=== PATIENT | female | born 1945 | race Caucasian/White ===

== ENCOUNTER → 2017-01-11 | Outpatient (CLI) | payer MEDICARE ==
[~2017-01-11] MED LIST: ACET325T9 PO; BUDE10.22 IH; CETRIZINE; CRESTOR5 MG PO; HYDR25TA9 PO; METF500T4 PO; TIOT18CA IH
--- NOTE | 2017-01-12 15:04 | RAD ---
APPROVED REPORT Patient Location: OUT-PATIENT Indications Claudication: Tan scale images of the right common femoral artery demonstrate mild to moderate catheters chronic p laque with biphasic spectral velocities and elevated velocities at 196.8 cm/s. There is moderate cath eters cardiac plaque in the mid to distal superficial femoral artery with elevated velocities suggest yanci of greater than 75% stenosis. The spectral waveforms are monophasic at this level suggestive of h igh-grade disease. The below-knee vessels demonstrate monophasic waveforms suggestive of likely small vessel distal disease but are patent. The left common femoral artery demonstrates mild plaque. Elevated velocities in a monophasic pattern are noted in the common femoral artery at 245 cm/s. The spectral waveforms are monophasic in the sup erficial femoral artery extending to the below-knee vessels. There is patent 3 vessel runoff in the l eft lower extremity. Critical Notification Critical Value: No <Conclusion> 1. 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 2. Likely moderate occlusive disease in the inflow vessels given elevated velocities in the common fe moral artery system. 3. Likely diffuse small vessel disease given monophasic waveforms throughout most of the system.
== END | disposition home or self-care (01) ==
LOC: US 10:33
PROVIDERS: ATTEND Internal Medicine Cardiovascular Disease
DX: I73.9 Peripheral vascular disease, unspecified (principal)
CPT/HCPCS: 93925

== ENCOUNTER → 2017-01-24 | Outpatient (CLI) | payer MEDICARE ==
[2017-01-24 11:16] LABS: BASO % 0 % (0-3); EOS # 0.1 x10^3/uL (0.0-0.7); EOS % 2 % (0-3); HEMATOCRIT 38.1 % (36.0-47.0); HEMOGLOBIN 12.9 g/dL (12.0-15.5); LYMPH # 1.6 x10^3/uL (1.0-4.8); LYMPH % 21 % (24-48); MEAN CORPUSCULAR HEMOGLOBIN 32 pg (25-35); MEAN CORPUSCULAR HGB CONC 34 g/dL (31-37); MEAN CORPUSCULAR VOLUME 95 fL (79-100); MONO # 0.5 x10^3/uL (0.0-1.1); MONO % 7 % (0-9); NEUT # 5.4 x10^3uL (1.8-7.7); NEUT % 70 % (31-73); PLATELET COUNT 329 x10^3/uL (140-400); WHITE BLOOD COUNT 7.7 x10^3/uL (4.0-11.0)
[2017-01-24 11:22] LABS: CALCIUM 8.8 mg/dL (8.5-10.1); GFR 54.5; POTASSIUM 3.9 mmol/L (3.5-5.1)
== END | disposition home or self-care (01) ==
LOC: LAB 10:16
PROVIDERS: ATTEND Specialist
DX: R50.82 Postprocedural fever (principal)
CPT/HCPCS: 36415; 80048; 85027; 87040

== ENCOUNTER → 2017-03-06 | Outpatient (CLI) | payer MEDICARE ==
--- NOTE | 2017-03-06 10:47 | RAD ---
DATE: 03/06/2017 EXAM: DIGITAL SCREEN BILAT W/CAD HISTORY: Screening study. COMPARISON: 02/01/2016 This study was interpreted with the benefit of Computerized Aided Detection (CAD). FINDINGS: Digital MLO and CC mammograms of both breasts were obtained. Comparison study is dated 02/01/2016. The breast parenchyma is composed of scattered fibroglandular densities which can obscure a lesion on mammography (breast density code B). Benign-appearing calcifications are seen within both breasts. No spiculated mass is seen. No malignant appearing calcification or area of architectural distortion is noted. Since the previous examination is no significant interval change. IMPRESSION: BI-RADS Category 1, negative. There is no mammographic evidence of malignancy. Routine yearly screening mammography is recommended for follow-up. BI-RADS CATEGORY: 1 NEGATIVE RECOMMENDED FOLLOW-UP: ADD ADDITIONAL IMAGING PQRS compliance statement: Patient information was entered into a reminder system with a target due date 03/06/2018 for the next mammogram. Mammography is a sensitive method for finding small breast cancers, but it does not detect them all and is not a substitute for careful clinical examination. A negative mammogram does not negate a clinically suspicious finding and should not result in delay in biopsying a clinically suspicious abnormality. "Our facility is accredited by the [employer] Mammography Program."
== END | disposition home or self-care (01) ==
LOC: MAMMO 09:16
PROVIDERS: ATTEND Specialist
DX: Z12.31 Encounter for screening mammogram for malignant neoplasm of breast (principal)
CPT/HCPCS: G0202; 77067

== ENCOUNTER → 2017-04-27 | Outpatient (CLI) | payer MEDICARE ==
--- NOTE | 2017-04-27 09:55 | RAD ---
Examination: CT chest without contrast History: History of follow-up lung nodules. Comparison: 05/15/2016 Technique: Axial CT images of the chest were performed with contrast. Coronal and sagittal reformats were performed PQRS Compliance Statement: One or more of the following individualized dose reduction techniques were utilized for this examination: 1. Automated exposure control 2. Adjustment of the mA and/or kV according to patient size 3. Use of iterative reconstruction technique. Findings: The visualized thyroid and grossly appears unremarkable. The central airways are patent. Few prominent mediastinal lymph nodes are identified with the largest measuring 1.5 cm in the pretracheal region. Multiple small subcentimeter bilateral pulmonary nodules are identified measuring 3 mm, 4 mm in the right upper lobe, 3 mm in the right middle lobe, 5 mm in the lateral aspect of the right middle lobe and 6 mm the right lower lobe of the lung. Small nodules identified in the left lower lobe of the lung measuring up to 5 mm Linear bibasal lung airspace opacities likely atelectasis or infiltrate. There is a linear focus of atelectasis or infiltrate identified in the anterior aspect of the right middle lobe of the lung. Diffuse bilateral emphysematous changes identified in the lungs Aortic atherosclerosis. Moderate degenerative changes thoracic spine The visualized liver, spleen, adrenals grossly appears unremarkable Impression: 1. Multiple scattered bilateral subcentimeter noncalcified pulmonary nodules are identified with the largest measuring 5 mm in the right lower lobe of the lung. There are mild prominent mediastinal lymph nodes with the largest measuring 1.5 cm in the pretracheal region. 2. Patchy bibasal lung airspace opacities in right middle lobe airspace opacity likely atelectasis or infiltrate. The left lung base infiltrate appears new.
== END | disposition home or self-care (01) ==
LOC: CT 09:24
PROVIDERS: ATTEND Internal Medicine Pulmonary Disease
DX: R91.8 Other nonspecific abnormal finding of lung field (principal); I70.0 Atherosclerosis of aorta; M47.894 Other spondylosis, thoracic region
CPT/HCPCS: 71250

== ENCOUNTER → 2017-08-31 | Outpatient (CLI) | payer MEDICARE ==
[~2017-08-31] MED LIST changes: +IOHEXOL 300 MG/ML 75 ML VIAL. IV ONE
--- NOTE | 2017-08-31 13:15 | RAD ---
CT of the chest without contrast, 08/31/2017: History: Follow-up lung nodules Noncontrast scans were obtained and compared to a study from 04/27/2017. There are moderate emphysematous changes in the lungs with scattered linear parenchymal scars. There are thicker streaky opacities in both lower lobes and medially in the right middle lobe and lingula, also probably representing areas of scarring. There are multiple small noncalcified pulmonary nodules in both lungs which appear to be unchanged. These include a 4 mm nodule seen posteriorly in the left lung base on image 226 of series #5. There is a 5 mm subpleural nodule located more laterally in the left base on image 225 of series #5 which is also unchanged. There is a 3.5 mm nodule in the left upper lobe as seen on image 111 of series #5 which appears unchanged. A 5 mm subpleural nodule along the dome of the right hemidiaphragm is unchanged. Several additional tiny stable subpleural nodules are seen. No new pulmonary nodules or pulmonary consolidation is seen. There is no evidence of pleural fluid. There is moderate calcific plaquing of the thoracic aorta without evidence of any present. No mediastinal adenopathy is seen. There are moderate scattered degenerative changes in the spine. IMPRESSION: 1. Emphysema with parenchymal scarring. 2. Unchanged tiny bilateral noncalcified pulmonary nodules. 3. No new chest abnormality is detected. PQRS Compliance Statement: One or more of the following individualized dose reduction techniques were utilized for this examination: 1. Automated exposure control 2. Adjustment of the mA and/or kV according to patient size 3. Use of iterative reconstruction technique
== END | disposition home or self-care (01) ==
LOC: CT 08:29
PROVIDERS: ATTEND Internal Medicine Pulmonary Disease
DX: R91.1 Solitary pulmonary nodule (principal); J43.8 Other emphysema; J98.4 Other disorders of lung
CPT/HCPCS: 71250

== ENCOUNTER → 2017-10-11 | Outpatient (CLI) | payer MEDICARE ==
[~2017-10-11] MED LIST changes: -IOHEXOL 300 MG/ML 75 ML VIAL. IV ONE
[2017-10-11 08:57] LABS: CALCIUM 9.5 mg/dL (8.5-10.1); CREATININE 0.8 mg/dL (0.6-1.0); GFR 70.5; POTASSIUM 3.5 mmol/L (3.5-5.1)
[2017-10-12 03:18] LABS: HEMOGLOBIN A1C 6.7 % (4.8-5.6)
== END | disposition home or self-care (01) ==
LOC: LAB 07:32
PROVIDERS: ATTEND Specialist
DX: E11.9 Type 2 diabetes mellitus without complications (principal); I10 Essential (primary) hypertension; E78.5 Hyperlipidemia, unspecified
CPT/HCPCS: 36415; 80048; 83036

== ENCOUNTER → 2017-10-11 | Outpatient (CLI) | payer MEDICARE ==
[2017-10-11 09:02] LABS: ALBUMIN 3.9 g/dL (3.4-5.0); DIRECT BILIRUBIN 0.1 mg/dL (0.0-0.2); TOTAL BILIRUBIN 0.4 mg/dL (0.2-1.0); TOTAL PROTEIN 7.6 g/dL (6.4-8.2)
== END | disposition home or self-care (01) ==
LOC: LAB 07:33
PROVIDERS: ATTEND Internal Medicine Cardiovascular Disease
DX: Z51.81 Encounter for therapeutic drug level monitoring (principal); E78.5 Hyperlipidemia, unspecified; I10 Essential (primary) hypertension; E11.9 Type 2 diabetes mellitus without complications
CPT/HCPCS: 36415; 80061; 80076

== ENCOUNTER → 2017-12-18 | Outpatient (CLI) | payer MEDICARE ==
[~2017-12-18] MED LIST changes: -METF500T4 PO; +METF500T5 PO
--- NOTE | 2017-12-19 07:57 | RAD ---
PA and lateral chest radiograph. History: COPD, shortness of air. Comparison: CT chest August 31, 2017. Findings: There is suboptimal inspiration. Cardiac silhouette is borderline in size. No pneumothorax or pleural effusion is appreciated. Density at the left lung base is favored to be atelectasis. Curvilinear density involving the right lower lobe is compatible with parenchymal scarring. Impression: 1. Left basilar atelectasis. Electronically signed by: Wilmer Fernando MD (12/19/2017 7:54 AM) [facility]
== END | disposition home or self-care (01) ==
LOC: RAD 16:46
PROVIDERS: ATTEND Specialist
DX: J44.1 Chronic obstructive pulmonary disease with (acute) exacerbation (principal); J98.11 Atelectasis; I10 Essential (primary) hypertension; E11.9 Type 2 diabetes mellitus without complications
CPT/HCPCS: 71046

== ENCOUNTER → 2018-04-12 | Outpatient (CLI) | payer MEDICARE ==
[~2018-04-12] MED LIST changes: +METF500T16 PO; -METF500T5 PO
--- NOTE | 2018-04-12 17:06 | RAD ---
Bilateral lower extremity venous doppler ultrasound Indication: Bilateral knee pain. . Technique: Color Doppler, grayscale, and spectral waveform analysis is used to evaluate the right and left lower extremity deep venous system, including the common femoral vein, superficial femoral vein, popliteal vein, and visualized calf veins. Right leg: No evidence of deep venous thrombosis. Normal response to augmentation, normal compressibility and normal phasicity is demonstrated. Visualized calf veins are patent. The visualized greater saphenous vein is patent. Left leg: No evidence of deep venous thrombosis. Normal response to augmentation, normal compressibility and normal phasicity is demonstrated. Visualized calf veins are patent. Visualized greater saphenous vein is patent. Impression: Negative for deep venous thrombosis Electronically signed by: Wilmer Arita MD (04/12/2018 5:02 PM) [email or web address]
== END | disposition home or self-care (01) ==
LOC: US 15:30
PROVIDERS: ATTEND Specialist
DX: M17.0 Bilateral primary osteoarthritis of knee (principal); M79.604 Pain in right leg; I10 Essential (primary) hypertension; E11.9 Type 2 diabetes mellitus without complications; J43.9 Emphysema, unspecified; M19.041 Primary osteoarthritis, right hand; M19.042 Primary osteoarthritis, left hand; E78.5 Hyperlipidemia, unspecified; M16.0 Bilateral primary osteoarthritis of hip
CPT/HCPCS: 93970

== ENCOUNTER → 2018-05-15 | Outpatient (CLI) | payer MEDICARE ==
--- NOTE | 2018-05-15 09:30 | RAD ---
Chest, PA and Lateral: Technique: PA and lateral views of the chest were obtained. History: Shortness of breath. Comparison: 12/18/2017. Findings: The heart and pulmonary vasculature appear within normal limits. Minimal bibasilar lung atelectasis.. The pleural margins are clear. Right-sided Port-A-Cath is identified. Moderate degenerative changes of thoracic spine. Impression: Minimal bibasilar atelectasis.. Electronically signed by: Darell Marie MD (05/15/2018 9:27 AM) [id number]
[2018-05-15 09:43] LABS: BASO # 0.1 x10^3/uL (0.0-0.2); BASO % 2 % (0-3); EOS # 0.1 x10^3/uL (0.0-0.7); EOS % 2 % (0-3); HEMATOCRIT 39.2 % (36.0-47.0); HEMOGLOBIN 13.2 g/dL (12.0-15.5); LYMPH # 1.8 x10^3/uL (1.0-4.8); LYMPH % 20 % (24-48); MEAN CORPUSCULAR HEMOGLOBIN 32 pg (25-35); MEAN CORPUSCULAR HGB CONC 34 g/dL (31-37); MEAN CORPUSCULAR VOLUME 95 fL (79-100); MONO # 0.4 x10^3/uL (0.0-1.1); MONO % 5 % (0-9); NEUT # 6.3 x10^3uL (1.8-7.7); NEUT % 72 % (31-73); PLATELET COUNT 360 x10^3/uL (140-400); RED BLOOD COUNT 4.12 x10^6/uL (3.50-5.40); RED CELL DISTRIBUTION WIDTH 13.4 % (11.5-14.5); WHITE BLOOD COUNT 8.8 x10^3/uL (4.0-11.0)
== END | disposition home or self-care (01) ==
LOC: RAD 09:01
PROVIDERS: ATTEND Specialist
DX: J44.1 Chronic obstructive pulmonary disease with (acute) exacerbation (principal); J98.11 Atelectasis
CPT/HCPCS: 36415; 71046; 85025

== ENCOUNTER → 2018-06-26 | Outpatient (CLI) | payer MEDICARE ==
[~2018-06-26] MED LIST changes: +HYDR-2145 PO; -HYDR25TA9 PO
--- NOTE | 2018-06-26 11:52 | RAD ---
DATE: 06/26/2018 EXAM: DIGITAL SCREEN BILAT W/CAD HISTORY: Routine screening COMPARISON: 2016 This study was interpreted with the benefit of Computerized Aided Detection (CAD). Breast Density: SCATTERED The breast parenchyma shows scattered fibroglandular densities. Breast parenchyma level B. FINDINGS: No new or enlarging breast densities are seen. Benign type calcifications are present. No suspicious microcalcifications have developed. IMPRESSION: Stable mammograms without evidence of malignancy. BI-RADS CATEGORY: 2 BENIGN FINDING(S) RECOMMENDED FOLLOW-UP: 12M 12 MONTH FOLLOW-UP PQRS compliance statement: Patient information was entered into a reminder system with a target due date for the next mammogram. Mammography is a sensitive method for finding small breast cancers, but it does not detect them all and is not a substitute for careful clinical examination. A negative mammogram does not negate a clinically suspicious finding and should not result in delay in biopsying a clinically suspicious abnormality. "Our facility is accredited by the [employer] Mammography [employer]."
--- NOTE | 2018-06-26 12:27 | RAD ---
EXAM: Dual energy x-ray absorptiometry (DEXA). HISTORY: Postmenopausal female presents for osteoporosis screening. COMPARISON: 02/01/2016. TECHNIQUE: Dual energy x-ray absorptiometry of the lumbar spine and right hip was performed. Calculation of bone mineral density based on standard deviations above or below the expected young adult normal value (T-score) was completed. FINDINGS: The average bone mineral density in the 1st through 4th lumbar vertebrae is 1.3-3 g/cmxcm, corresponding with a T-score of 1.2. There has been no change in bone mineral density of the lumbar spine compared to the prior study. The average total bone mineral density in the right hip is 1.103 g/cmxcm, corresponding with a T-score of 1.2. There has been a 0.4 percent decrease in density of the right hip compared to the prior study. IMPRESSION: Normal bone mineral density. Note: Definitions established by the World Health Organization: 1. Normal: T-score is -1.0 or above. 2. Osteopenia: T-score is between -1.0 and -2.5 . 3. Osteoporosis: T-score is -2.5 or below. Electronically signed by: Enedina Nash MD (06/26/2018 12:23 PM) [email or web address]
== END | disposition home or self-care (01) ==
LOC: DXRAD 09:29
PROVIDERS: ATTEND Specialist
DX: Z12.31 Encounter for screening mammogram for malignant neoplasm of breast (principal); Z13.820 Encounter for screening for osteoporosis; Z78.0 Asymptomatic menopausal state
CPT/HCPCS: 77067; 77080

== ENCOUNTER → 2018-10-22 | Outpatient (CLI) | payer MEDICARE ==
[2018-10-22 16:33] LABS: INFLUENZA A PATIENT NEGATIVE (NEGATIVE); INFLUENZA B PATIENT NEGATIVE (NEGATIVE)
== END | disposition home or self-care (01) ==
LOC: LAB 15:20
PROVIDERS: ATTEND Internal Medicine Hematology & Oncology
DX: J02.9 Acute pharyngitis, unspecified (principal)
CPT/HCPCS: 87070; 87804; 87880

== ENCOUNTER → 2018-11-08 | Outpatient (CLI) | payer MEDICARE ==
--- NOTE | 2018-11-09 09:09 | RAD ---
PA and lateral chest. HISTORY: Short of air, COPD PA and lateral views were taken of the chest. There is a Port-A-Cath on the left without change. There is linear scarring in the left lung base without change compared to a study from April 2018. There are no new infiltrates. The aorta is mildly tortuous. Heart is normal in size. There is no effusion. IMPRESSION: 1. Basilar scarring or atelectasis without change from an old study. 2. No acute infiltrates. Electronically signed by: Fer Peck MD (11/09/2018 9:07 AM) [facility]
== END | disposition home or self-care (01) ==
LOC: DXRAD 16:37
PROVIDERS: ATTEND Physician Assistant
DX: J44.1 Chronic obstructive pulmonary disease with (acute) exacerbation (principal)
CPT/HCPCS: 71046

== ENCOUNTER → 2019-07-15 | Outpatient (CLI) | payer MEDICARE ==
--- NOTE | 2019-07-15 11:26 | RAD ---
EXAM: Dual energy x-ray absorptiometry (DEXA). HISTORY: Post menopausal screening. TECHNIQUE: Dual energy x-ray absorptiometry of the lumbar spine and the right hip was performed. T-score of average bone mineral density based was calculated based on standard deviations above or below the expected young adult normal value. Diagnostic definitions were established by the World Health Organization. FINDINGS: The average bone mineral density associated with L1-L4 is 1.295 g/cm^2, corresponding with a T-score of 1.0. The average total bone mineral density associated with the right hip is 1.025 g/cm^2, corresponding with a T-score of 0.6. In comparison with the baseline study of 02/01/2016, average bone mineral density at the lumbar spine has changed -2.0%, while the average density at the hips has changed -7.2%. Refer to the worksheets for full detail. IMPRESSION: 1. Normal. Average bone mineral density yields a T-score of -1.0 or greater. Fracture risk is low. Electronically signed by: West Mcclendon MD (07/15/2019 11:24 AM) [facility]
--- NOTE | 2019-07-16 12:18 | RAD ---
DATE: July 15, 2019 EXAM: DIGITAL SCREEN BILAT W/CAD HISTORY: Screening study. COMPARISON: 2016 and 2018 This study was interpreted with the benefit of Computerized Aided Detection (CAD). FINDINGS: Breast Density: SCATTERED The breast parenchyma shows scattered fibroglandular densities. Breast parenchyma level B.. There are no dominant suspicious masses, suspicious microcalcifications or evidence of architectural distortion. IMPRESSION: No mammographic indicators for malignancy. BI-RADS CATEGORY: 1 NEGATIVE RECOMMENDED FOLLOW-UP: 12M 12 MONTH FOLLOW-UP PQRS compliance statement: Patient information was entered into a reminder system with a target due date July 16, 2020 for the next mammogram. Mammography is a sensitive method for finding small breast cancers, but it does not detect them all and is not a substitute for careful clinical examination. A negative mammogram does not negate a clinically suspicious finding and should not result in delay in biopsying a clinically suspicious abnormality. "Our facility is accredited by the [employer] Mammography Program." The patient's breast density may affect the ability of mammography to detect breast cancer. There are 4 categories of breast density, A, B, C and D. Breast density A means that most of the breast tissue is replaced with adipose tissue and therefore is not dense. Breast density B means that the breast tissue is mildly dense and scattered. Breast density C means that the breast tissue is heterogeneously dense. Breast density D means that the breast tissue is very dense. Breast densities especially C and D may decrease the sensitivity of mammography to detect breast cancer. Therefore, the patient may benefit from 3-D breast mammography (3D breast tomography) as a part of their screening mammogram. Insurance may or may not pay for this additional imaging. The patient's breast density based on today's mammogram is category B.
== END | disposition home or self-care (01) ==
LOC: MAMMO 10:25
PROVIDERS: ATTEND Specialist
DX: Z12.31 Encounter for screening mammogram for malignant neoplasm of breast (principal); Z78.0 Asymptomatic menopausal state
CPT/HCPCS: 77067; 77080

== ENCOUNTER 2019-10-26 13:20 | Emergency (ER) | payer MEDICARE ==
[~2019-10-26] VITALS: Ht 165.1 cm; Wt 86.5 kg
[2019-10-26] MEDS ORDERED: IV NORMAL SALINE 1,000ML 1,000 ML IV ONE (13:30)
[2019-10-26] MEDS ORDERED: ACETAMINOPHEN 500 MG TABLET PO ONE ×3 (13:56→14:30)
--- NOTE | 2019-10-26 14:09 | RAD ---
CHEST AP ONLY History: Shortness of breath Comparison: November 08, 2018 Findings: Single view of the chest is submitted. There is no infiltrate, pneumothorax, or effusion. The pericardial cardiac silhouette is within normal limits in size. There is again left subclavian port catheter with the tip in the region of the inferior aspect of the superior vena cava. There is atherosclerotic calcification near aortic arch, somewhat tortuous thoracic aorta. Impression: 1. No acute radiographic abnormality is identified. Electronically signed by: Bala Solorio MD (10/26/2019 2:06 PM) [facility]
[2019-10-26 14:17] LABS: BASO # 0.1 x10^3/uL (0.0-0.2); BASO % 1 % (0-3); CALCIUM 9.2 mg/dL (8.5-10.1); CREATININE 2.9 mg/dL (0.6-1.0); EOS % 0 % (0-3); GFR 15.9; HEMATOCRIT 33.2 % (36.0-47.0); HEMOGLOBIN 10.5 g/dL (12.0-15.5); LYMPH # 1.1 x10^3/uL (1.0-4.8); LYMPH % 5 % (24-48); MEAN CORPUSCULAR HEMOGLOBIN 29 pg (25-35); MEAN CORPUSCULAR HGB CONC 32 g/dL (31-37); MEAN CORPUSCULAR VOLUME 91 fL (79-100); MONO # 0.4 x10^3/uL (0.0-1.1); MONO % 2 % (0-9); NEUT # 19.6 x10^3uL (1.8-7.7); NEUT % 93 % (31-73); PLATELET COUNT 463 x10^3/uL (140-400); POTASSIUM 4.7 mmol/L (3.5-5.1); RED BLOOD COUNT 3.64 x10^6/uL (3.50-5.40); RED CELL DISTRIBUTION WIDTH 16.8 % (11.5-14.5); WHITE BLOOD COUNT 21.2 x10^3/uL (4.0-11.0)
[2019-10-26] MEDS ORDERED: IPRATRPIUM/ALBUTEROL 0.5/2.5MG 3 ML NEBU. ONE (14:17)
[2019-10-26] MEDS ORDERED: VANCOMYCIN 1 GM VIAL. ONE (14:18)
[2019-10-26] MEDS ORDERED: IV NORMAL SALINE 500ML 500 ML ONE (14:18)
--- NOTE | 2019-10-26 14:26 | PHYS DOC ---
Adult General Chief Complaint Chief Complaint: SHORTNESS OF BREATH HPI HPI 74-year-old female presents with rash and shortness of breath. She was brought by EMS. The patient tells me that she has had a rapidly increasing bright red rash of her right lower extremity for the last 2 days. She began to have shortness of breath today that is gotten much worse. She also feels like she has a fever. EMS found her to have a fever of 102. She has a fever of 102 on arrival. The patient lives at home with 2 family members. She has not been traveling out of the area. She has not been exposed to a known patient with COVID 19. The patient is normally on 3 L of oxygen. She has been maintaining her oxygen saturations with 3 L, but is breathing over 40 times a minute. The patient tells me she just does not feel like she can catch her breath. Review of Systems Review of Systems Constitutional: Fever [] Eyes: Denies change in visual acuity, redness, or eye pain [] HENT: Denies nasal congestion or sore throat [] Respiratory: shortness of breath. Denies cough [] Cardiovascular: No additional information not addressed in HPI [] GI: Denies abdominal pain, nausea, vomiting, bloody stools or diarrhea [] : Denies dysuria or hematuria [] Musculoskeletal: Denies back pain or joint pain [] Integument: Rash right lower leg [] Neurologic: Denies headache, focal weakness or sensory changes [] Endocrine: Denies polyuria or polydipsia [] All other systems were reviewed and found to be within normal limits, except as documented in this note. Current Medications Current Medications Current Medications Medications (Trade) Dose Ordered Sig/Willa Start Time Stop Time Status Last Admin Dose Admin Acetaminophen (Tylenol) 500 mg STK-MED ONCE 10/26/19 14:03 10/26/19 14:03 DC Albuterol/ Ipratropium (Duoneb) 3 ml STK-MED ONCE 10/26/19 14:17 10/26/19 14:18 DC Lorazepam (Ativan Inj) 1 mg 1X ONCE 10/26/19 14:45 10/26/19 14:46 Sodium Chloride 500 ml @ As Directed STK-MED ONCE 10/26/19 14:18 10/26/19 14:18 DC Vancomycin HCl 2 gm/Sodium Chloride 500 ml @ 250 mls/hr 1X ONCE 10/26/19 14:45 10/26/19 16:44 Allergies Allergies Allergies Coded Allergies Type Severity Reaction Last Updated Verified amoxicillin Allergy Severe 12/05/16 No cephalexin Allergy Severe 12/05/16 No clavulanic acid Allergy Severe 12/05/16 No trazodone Allergy Severe 12/05/16 No aspirin Allergy Mild BLEED 12/05/16 No latex Allergy Mild Rash 12/05/16 No Uncoded Allergies Type Severity Reaction Last Updated Verified SHELLFISH Allergy Severe 12/05/16 ERYTHROMYACIN Allergy Mild JOINT PAIN 12/05/16 Physical Exam Physical Exam Constitutional: Well developed, well nourished, moderate acute distress. [] HENT: Normocephalic, atraumatic, bilateral external ears normal, oropharynx moist, no oral exudates, nose normal. [] Eyes: PERRLA, EOMI, conjunctiva normal, no discharge. [] Neck: Normal range of motion, no tenderness, supple, no stridor. [] Cardiovascular: Heart rate 113, regular rhythm, no murmur [] Lungs & Thorax: Bilateral breath sounds diminished, breathing 40 times a minute [] Abdomen: Bowel sounds normal, soft, no tenderness, no masses, no pulsatile masses. [] Skin: Extremely erythematous and hot right lower extremity up to the thighs. [] Back: No tenderness, no CVA tenderness. [] Extremities: No tenderness, no cyanosis, no clubbing, ROM intact, no edema. [] Neurologic: Alert and oriented X 3, normal motor function, normal sensory function, no focal deficits noted. [] Psychologic: Affect normal, judgement normal, mood anxious. [] Current Patient Data Lab Results Laboratory Tests Test 10/26/19 13:40 Sodium Level 133 mmol/L (136-145) L Potassium Level 4.7 mmol/L (3.5-5.1) Chloride Level 93 mmol/L (98-107) L Carbon Dioxide Level 29 mmol/L (21-32) Anion Gap 11 (6-14) Blood Urea Nitrogen 35 mg/dL (7-20) H Creatinine 2.9 mg/dL (0.6-1.0) H Estimated GFR (Cockcroft-Gault) 15.9 BUN/Creatinine Ratio 12 (6-20) Glucose Level 268 mg/dL (70-99) H Calcium Level 9.2 mg/dL (8.5-10.1) Total Bilirubin Pending Aspartate Amino Transferase (AST) Pending Alanine Aminotransferase (ALT) Pending Alkaline Phosphatase Pending TI-Lzv-O-Type Natriuretic Peptide Pending Total Protein Pending Albumin Pending Albumin/Globulin Ratio Pending EKG EKG Sinus tachycardia, rate 113, normal axis, no ST elevations or depressions. [] Radiology/Procedures Radiology/Procedures [] Impressions: CHEST AP ONLY History: Shortness of breath Comparison: November 08, 2018 Findings: Single view of the chest is submitted. There is no infiltrate, pneumothorax, or effusion. The pericardial cardiac silhouette is within normal limits in size. There is again left subclavian port catheter with the tip in the region of the inferior aspect of the superior vena cava. There is atherosclerotic calcification near aortic arch, somewhat tortuous thoracic aorta. Impression: 1. No acute radiographic abnormality is identified. Electronically signed by: Ernestina Medina MD (10/26/2019 2:06 PM) [facility] DICTATED AND SIGNED BY: ERNESTINA MEDINA MD DATE: 10/26/19 1406 CC: JERROD MAYO DO; SEAN KAYE MD ~ Course & Med Decision Making Course & Med Decision Making Pertinent Labs and Imaging studies reviewed. (See chart for details) The patient's presentation was suspicious for sepsis. She had an elevated heart rate, difficulty breathing, source of infection with right leg cellulitis. Sepsis protocol was started. She was given 30 mL/kg of fluids based on ideal body weight. Blood cultures and lactic acid were drawn. She was started on vancomycin and Levaquin. Her lactic acid was 3.9. The patient's heart rate has stayed in the low 100s. Her blood pressure has continued to map above 60. Her O2 sat is 97 or better. Respiration rate has slowed down into the 30s at times, but is also been as high as 60. Her chest x-ray was negative for acute findings. Her ABG showed some CO2 retention and a low O2 of 68, but her pH was 7.4. The patient needs to be transferred to the ICU. I spoke with Dr. Black and he has accepted the patient for transfer to [facility]. She will go by ambulance. While the patient has been in isolation, I do not believe she meets coronavirus criteria. This appears to be cellulitis sepsis. 56 minutes of critical care time was spent on this patient exclusive of other billable procedures. [] Dragon Disclaimer Dragon Disclaimer This electronic medical record was generated, in whole or in part, using a voice recognition dictation system. Departure Departure: Impression: Primary Impression: Sepsis Additional Impression: Cellulitis of right leg Disposition: XFER [facility] Admitting Physician: Nidhi Black Condition: GUARDED Referrals: SEAN KAYE MD (PCP) Sepsis Assessment: Date and Time of Assessment Date: Oct 26, 2019 Time: 14:24 Respirations Respiratory Effort: Shortness of air, Labored Respiratory Pattern: Grunting Cardiovascular Pulse Rhythm: Regular HEART: No murmurs noted Lung Sounds Breath Sounds: Diminished Capillary Refill Capillary Refill: Rt Hand < 3 seconds Peripheral Pulse Pulse Location: Monitor Pulse Strength: Normal (2+) Pulse Assessment Method: Monitor Integumentary Skin: Warm Skin Moisture: Dry Skin Turgor: Normal Skin Color: erythema Fingernail Color: WNL Sepsis Assessment: Date and Time of Assessment Date: Oct 26, 2019 Time: 17:38 Respirations Respiratory Effort: Accessory muscles Respiratory Pattern: Normal Cardiovascular Pulse Rhythm: Regular HEART: No murmurs noted Lung Sounds Breath Sounds: Diminished Capillary Refill Capillary Refill: Rt Hand < 3 seconds Peripheral Pulse Pulse Location: Monitor Pulse Strength: Normal (2+) Pulse Assessment Method: Monitor Integumentary Skin: Warm Skin Moisture: Dry Skin Turgor: Normal Skin Color: erythema Fingernail Color: WNL Problem Qualifiers Primary Impression: Sepsis Sepsis type: sepsis due to unspecified organism Sepsis acute organ dysfunction status: with acute organ dysfunction Severe sepsis acute organ dysfunction type: acute respiratory failure Acute respiratory failure type: with hypercapnia Severe sepsis shock status: without septic shock Qualified Codes: A41.9 - Sepsis, unspecified organism; R65.20 - Severe sepsis without septic shock; J96.02 - Acute respiratory failure with hypercapnia JERROD MAYO DO Oct 26, 2019 14:25
[2019-10-26 14:29] LABS: BGAS PH 7.41 (7.35-7.45)
[2019-10-26] MEDS ORDERED: IV NORMAL SALINE 1,000ML 1,000 ML IV SCH (14:30)
[2019-10-26 14:31] LABS: ALBUMIN 2.8 g/dL (3.4-5.0); ALBUMIN/GLOBULIN RATIO 0.7 (1.0-1.7); TOTAL BILIRUBIN 0.5 mg/dL (0.2-1.0); TOTAL PROTEIN 7.1 g/dL (6.4-8.2)
[2019-10-26 14:34] LABS: INFLUENZA A PATIENT NEGATIVE (NEGATIVE); INFLUENZA B PATIENT NEGATIVE (NEGATIVE)
[2019-10-26] MEDS ORDERED: VANCOMYCIN 2 GM in IV NORMAL SALINE 500ML 500 ML IV ONE (14:45)
[2019-10-26 15:10] LABS: % BANDS 5 % (0-9); % LYMPHS 9 % (24-48); % METAS 2 % (0-0); % MONOS 3 % (0-10); % SEGS 81 % (35-66)
[2019-10-26 15:16] LABS: PLT ESTIMATE INCREASED (ADEQUATE)
[2019-10-26 15:17] LABS: ANISOCYTOSIS SLIGHT; POLYCHROMASIA SLIGHT
[2019-10-26 16:33] LABS: BILIRUBIN,URINE NEG (NEG); CLARITY,URINE CLOUDY; COLOR,URINE AMBER; GLUCOSE,URINE NEG (NEG); NITRITE,URINE NEG (NEG); RBC,URINE 0 /HPF (0-2); UROBILINOGEN,URINE 0.2 mg/dL (0.2 mg/dL)
[2019-10-26 16:34] LABS: AMORPHOUS SEDIMENT,UR PRESENT /HPF; BACTERIA,URINE 0 /HPF (0-FEW); SQUAMOUS EPITHELIAL CELL,UR OCC /LPF
--- NOTE | 2019-10-26 17:03 | EKG ---
[address] [address] Test Date: 2019-10-26 Test Time: 13:45:56 Pat Name: JUNI ANDUJAR Department: Room: Gender: F Sheet Rock Applicator: : 1945 Requested By: JERROD MAYO Order Number: [id number] Reading MD: Measurements Intervals [place] Rate: 113 P: 32 OR: 156 QRS: -74 QRSD: 96 T: 81 QT: 306 QTc: 425 Interpretive Statements SINUS TACHYCARDIA LEFT ATRIAL ABNORMALITY ABNORMAL LEFT AXIS DEVIATION LEFT ANTERIOR FASCICULAR BLOCK ST & T ABNORMALITY, CONSIDER HIGH LATERAL ISCHEMIA OR LEFT VENTRICULAR STRAIN ABNORMAL ECG RI6.01 No previous ECG available for comparison
[2019-10-26 17:30] VITALS: BP 81/45
== END 2019-10-26 19:05 | disposition short-term general hospital (02) ==
LOC: ER 13:20
DX: A41.9 Sepsis, unspecified organism (principal); L03.115 Cellulitis of right lower limb; Z88.1 Allergy status to other antibiotic agents; Z88.6 Allergy status to analgesic agent; Z88.8 Allergy status to other drugs, medicaments and biological substances; Z91.040 Latex allergy status; Z91.013 Allergy to seafood; Z91.09 Other allergy status, other than to drugs and biological substances
CPT/HCPCS: 36415; 51702; 71045; 80053; 81001; 82803; 83605; 83880; 84484; 85007; 85025; 87040; 87070; 87086; 87205; 87804; 87880; 93005; 94640; 96365; 96366; 96368; 96375; 96376; 99291; J1956; J2060; J3010; J3370; J7040; J7030

== ENCOUNTER 2020-04-02 09:10 | Inpatient (IN) | payer MEDICARE ==
[~2020-04-02] VITALS: Ht 165.1 cm; Wt 90.2 kg
[2020-04-02] MEDS ORDERED: VANCOMYCIN PER PHARMACY MC ONE (09:30)
[2020-04-02] MEDS ORDERED: 0.9 % SODIUM CHLORIDE 10 ML DISP.SYRIN. IV PRN (09:30)
--- NOTE | 2020-04-02 09:39 | PHYS DOC ---
Past History Past Medical History: Cancer, COPD, Other Additional Past Medical Histor: Chronic Celulitis. Past Surgical History: Other Additional Past Surgical Histo: right hip, 4 toes on right foot amputated Alcohol Use: None General Adult EDM: Chief Complaint: SHORTNESS OF BREATH HPI: HPI: 75-year-old female past medical history of melanoma (of toe-acral lentinginous?) in remission, COPD on 3 L nasal cannula, prediabetes and metformin, hypertension, hyperlipidemia and seasonal allergies, presents to the ED with complaints of burning sternal chest pain that radiates up to her throat with associated dry, sore throat, shortness of breath and chills, sxs started 1 day ago. States she is not taken any medications today. Is on clindamycin and cipro for right lower extremity cellulitis that started on Sunday (h/o RLE vein surgery). Is on xarelto for a h/o DVTs. Was seen by her oncologist yesterday who marked the cellulitis border. Has not taken any breathing treatments this am. No h/o PE or ACS. Pt was admitted to the hospital for sepsis 2/2 RLE cellulitis 09/2019. Has not eaten anything since yesterday morning due to epigastric pain that she believes is an adverse effect of Cipro. ROS: Denies associated fever, neck stiffness, headache, cough, rash, nausea, vomiting, diarrhea, diaphoresis, chest pressure tearing or ripping sensation, lack of sensation or motor skills, neurologic deficits, dysuria, hematuria, flank pain, hemoptysis, back pain, abdominal pain. Heart Score: HEART Score for Chest Pain: HEART Score for Chest Pain Response (Comments) Value History Slighlty/Non-Suspicious 0 ECG Nonspecific Repolarizatio 1 Age > 65 2 Risk Factors >3 Risk Factors or Hx CAD 2 Troponin < Normal Limit 0 Total 5 Risk Factors: Risk Factors: DM, Current or recent (<one month) smoker, HTN, HLP, family history of CAD, obesity. Risk Scores: Score 0 - 3: 2.5% MACE over next 6 weeks - Discharge Home Score 4 - 6: 20.3% MACE over next 6 weeks - Admit for Clinical Observation Score 7 - 10: 72.7% MACE over next 6 weeks - Early Invasive Strategies Current Medications: Current Meds: Current Medications Medications (Trade) Dose Ordered Sig/Willa Start Time Stop Time Status Last Admin Dose Admin Aztreonam 2 gm/ Sodium Chloride 100 ml @ 200 mls/hr Q6HRS 04/02/20 12:00 UNV Metronidazole 100 ml @ 100 mls/hr 1X ONCE 04/02/20 09:30 04/02/20 10:29 UNV Sodium Chloride 1,710 ml @ 1,710 mls/hr Q1H 04/02/20 09:25 Sodium Chloride (Normal Saline Flush) 10 ml QSHIFT PRN 04/02/20 09:30 Vancomycin HCl (Vanco Per Pharmacy) 1 each 1X ONCE 04/02/20 09:30 04/02/20 09:31 Allergies: Allergies: Allergies Coded Allergies Type Severity Reaction Last Updated Verified amoxicillin Allergy Severe 12/05/16 No cephalexin Allergy Severe 12/05/16 No clavulanic acid Allergy Severe 12/05/16 No trazodone Allergy Severe 12/05/16 No erythromycin base Allergy Intermediate JOINT PAIN 10/30/19 Yes shellfish derived Allergy Intermediate 10/30/19 Yes aspirin Allergy Mild BLEED 12/05/16 No latex Allergy Mild Rash 12/05/16 No Physical Exam: PE: Constitutional: Well developed, well nourished, no acute distress, non-toxic appearance. [] HENT: Normocephalic, atraumatic, bilateral external ears normal, oropharynx moist, no oral exudates, nose normal. [] Eyes: EOMI, conjunctiva normal, no discharge. [] Neck: Normal range of motion, no tenderness, supple, no stridor. [] Cardiovascular: Tachycardic, no murmur [] Lungs & Thorax: Bilateral breath sounds clear to auscultation [] Abdomen: Bowel sounds normal, soft, no tenderness, no masses, no pulsatile masses. [] Skin: Warm, dry, no erythema, no rash. [] Back: No tenderness, no CVA tenderness. [] Extremities: No tenderness, no cyanosis, no clubbing, ROM intact, bilateral lower extremity edema, worsened on right lower extremity than left, circumferential cellulitis over approximately 75% of patient's distal right leg, RLE pulses intact but decreased from LLE Neurologic: Alert and oriented X 3, normal motor function, normal sensory function, no focal deficits noted. [] Psychologic: Affect normal, judgement normal, mood normal. [] Current Patient Data: Vital Signs: Vital Signs Date Time Temp Pulse Resp B/P (MAP) Pulse Ox O2 Delivery O2 Flow Rate FiO2 04/02/20 09:19 98.5 119 16 133/73 (93) 96 Room Air EKG: EKG: Sinus tachycardia at 111 bpm, left axis deviation, QTC 460, new T wave inversion aVL, old Q waves in 1 and aVL, no ST elevations, compared with October 27, 2019 EKG Radiology/Procedures: Radiology/Procedures: IMAGING REPORT Signed PATIENT: JUNI ANDUJAR ACCOUNT: [id number] : 1945 LOCATION: ER AGE: 75 SEX: F EXAM STATUS: REG ER ORD. PHYSICIAN: JODI MCDOWELL DO REASON: soa PROCEDURE: PORTABLE CHEST 1V PORTABLE CHEST 1V 04/02/2020 9:25 AM INDICATION: Shortness of air COMPARISON: 10/26/2019 TECHNIQUE: Portable frontal view of the chest is provided. FINDINGS: The cardiomediastinal silhouette is within normal limits. Left chest wall infusion port catheter is in similar position. Bandlike density in the medial right middle lobe may represent subsegmental atelectasis versus scarring. No pleural effusions, pulmonary vascular congestion or pneumothorax. No suspicious osseous abnormality. IMPRESSION: New bandlike density in the medial right lung base may represent subsegmental atelectasis versus scarring. Minimal tenting of the diaphragm is noted suggestive of volume loss. Electronically signed by: Bonifacio Menard MD (04/02/2020 9:51 AM) [facility] DICTATED AND SIGNED BY: BONIFACIO MENARD MD DATE: 04/02/20 0951 CC: SEAN KAYE MD; JODI MCDOWELL DO ~ IMAGING REPORT Signed PATIENT: JUNI ANDUJAR ACCOUNT: [id number] : 1945 LOCATION: ER AGE: 75 SEX: F EXAM STATUS: REG ER ORD. PHYSICIAN: JODI MCDOWELL DO REASON: RT LE PAIN AND SWELLING PROCEDURE: VENOUS LOWER EXTREMITY RIGHT Right lower extremity venous doppler ultrasound History: Right lower extremity pain and swelling Comparison: None Findings: Multiple grayscale, color, and duplex spectral analysis sonographic images were acquired of the right lower extremity veins to evaluate for the presence of DVT. There is normal phasicity. Normal compression, color-flow, and augmentation is demonstrated from the right common femoral to the popliteal veins. There is normal color flow of the proximal greater saphenous and profunda femoris veins. There is normal color flow of segments of the calf veins. There is edema of the soft tissues. Impression: 1. There is no evidence of deep venous thrombosis from the right common femoral to the popliteal veins. Electronically signed by: Ernestina Solorio MD (04/02/2020 10:55 AM) [id number] DICTATED AND SIGNED BY: ERNESTINA SOLORIO MD DATE: 04/02/20 105 CC: SEAN KAYE MD; JODI MCDOWELL DO ~ IMAGING REPORT Signed PATIENT: JUNI ANDUJAR ACCOUNT: [id number] : 1945 LOCATION: ER AGE: 75 SEX: F EXAM STATUS: REG ER ORD. PHYSICIAN: JODI MCDOWELL DO REASON: WEAK PULSES PROCEDURE: ARTERIAL STUDY LOWER EXT RIGHT Right lower extremity arterial ultrasound History:Weak pulses Findings: Multiple grayscale, color, and duplex spectral analysis sonographic images were acquired of the right lower extremity arteries. There are diffuse abnormal monophasic waveforms throughout the right lower extremity arteries. There is also diffuse plaque throughout the right artery arteries. No vessel occlusion is demonstrated. Velocities in cm/sec: Common femoral artery 179 Profunda femoris artery 134 Proximal SFA 193 Mid SFA 228 Distal SFA 256 Popliteal artery 122 Posterior tibial artery 68 proximally and 68 distally Peroneal artery 61 Anterior tibial artery 84 Dorsalis pedis artery 63 Impression: 1. No vessel occlusion is demonstrated. There is diffuse plaque of the right lower extremity arteries. There are also abnormal monophasic waveforms, degree of inflow disease not excluded. Electronically signed by: Ernestina Solorio MD (04/02/2020 10:58 AM) [id number] DICTATED AND SIGNED BY: ERNESTINA SOLORIO MD DATE: 04/02/20 105 CC: SEAN KAYE MD; JODI MCDOWELL DO ~ Course & Med Decision Making: Course & Med Decision Making Pertinent Labs and Imaging studies reviewed. (See chart for details) Concern for epigastric abdominal pain with dehydration and sinus tachycardia, troponin negative. patient with normocytic anemia and is slightly down from prior, 9.3 today from 10.5 in September. Glucose elevated at 221 with no anion gap. Normal coags. RLE venous duplex negative for DVT. Arterial study does show peripheral arterial disease. Patient not tolerating outpatient antibiotics. Will admit for IV antibiotics to cover MRSA. Patient is tachycardic which is likely leukocytosis or lactic acidosis. Does not meet SIRS criteria. Patient was started on abx and will admit for further medical management. Patient sta ble at time of admission and agrees with this plan. I have spoken with the patient and/or caregivers. I have explained the pat darwin's condition, diagnosis and treatment plan based on the information available to me at this time. I have answered the patient's and/or caregivers questions and answered any concerns. The patient and/or caregivers have as good an understanding of the patient's diagnosis, condition and treatment plan as can be expected at this point. The patient has been stabilized within the capability of the emergency department. The patient will be transported for further care and management or will be moved to an observation or inpatient service. I have communicated with the staff or medical practitioner taking over this patient's care. Cassandra Disclaimer: Cassandra Disclaimer: This electronic medical record was generated, in whole or in part, using a voice recognition dictation system. Departure Departure: Impression: Primary Impression: Cellulitis of right lower extremity Additional Impressions: Failure of outpatient treatment Epigastric pain Sinus tachycardia Disposition: ADMITTED INPATIENT Admitting Physician: Keaton Chaidez Condition: STABLE Referrals: SEAN KAYE MD (PCP) Justification of Admission: Justification of Admission: Justification of Admission Dx: Yes Cellulitis: Cellulitis JODI MCDOWELL DO Apr 02, 2020 09:39
--- NOTE | 2020-04-02 09:53 | RAD ---
PORTABLE CHEST 1V 04/02/2020 9:25 AM INDICATION: Shortness of air COMPARISON: 10/26/2019 TECHNIQUE: Portable frontal view of the chest is provided. FINDINGS: The cardiomediastinal silhouette is within normal limits. Left chest wall infusion port catheter is in similar position. Bandlike density in the medial right middle lobe may represent subsegmental atelectasis versus scarring. No pleural effusions, pulmonary vascular congestion or pneumothorax. No suspicious osseous abnormality. IMPRESSION: New bandlike density in the medial right lung base may represent subsegmental atelectasis versus scarring. Minimal tenting of the diaphragm is noted suggestive of volume loss. Electronically signed by: Ximena Chiu MD (04/02/2020 9:51 AM) ANA
[2020-04-02] MEDS ORDERED: VANCOMYCIN 2 GM in IV NORMAL SALINE 500ML 500 ML IV ONE (10:00)
[2020-04-02 10:13] LABS: BASO # 0.1 x10^3/uL (0.0-0.2); BASO % 1 % (0-3); EOS % 0 % (0-3); HEMATOCRIT 29.3 % (36.0-47.0); HEMOGLOBIN 9.3 g/dL (12.0-15.5); LYMPH # 0.9 x10^3/uL (1.0-4.8); LYMPH % 9 % (24-48); MEAN CORPUSCULAR HEMOGLOBIN 27 pg (25-35); MEAN CORPUSCULAR HGB CONC 32 g/dL (31-37); MEAN CORPUSCULAR VOLUME 84 fL (79-100); MONO # 0.7 x10^3/uL (0.0-1.1); MONO % 7 % (0-9); NEUT # 8.8 x10^3uL (1.8-7.7); NEUT % 83 % (31-73); PLATELET COUNT 566 x10^3/uL (140-400); RED BLOOD COUNT 3.48 x10^6/uL (3.50-5.40); RED CELL DISTRIBUTION WIDTH 18.8 % (11.5-14.5); WHITE BLOOD COUNT 10.6 x10^3/uL (4.0-11.0)
[2020-04-02 10:19] LABS: CALCIUM 8.9 mg/dL (8.5-10.1); GFR 54.1; POTASSIUM 3.8 mmol/L (3.5-5.1)
[2020-04-02 10:25] LABS: ALBUMIN 2.8 g/dL (3.4-5.0); ALBUMIN/GLOBULIN RATIO 0.6 (1.0-1.7); TOTAL BILIRUBIN 0.4 mg/dL (0.2-1.0); TOTAL PROTEIN 7.4 g/dL (6.4-8.2)
[2020-04-02] MEDS: IV NORMAL SALINE 1,000ML 1,710 ML IV SCH ×2 (10:25→10:50)
--- NOTE | 2020-04-02 10:49 | EKG ---
[address] [address] Test Date: 2020-04-02 Test Time: 10:39:11 Pat Name: JUNI ANDUJAR Department: Room: Gender: F Accountant Auditor: TROY : 1945 Requested By: JODI MCDOWELL Order Number: [id number] Reading MD: Measurements Intervals [place] Rate: 111 P: 14 [place]: 164 QRS: -67 QRSD: 104 T: 72 QT: 336 QTc: 460 Interpretive Statements SINUS TACHYCARDIA LEFT ATRIAL ABNORMALITY ABNORMAL LEFT AXIS DEVIATION R-S TRANSITION ZONE IN V LEADS DISPLACED TO THE LEFT LEFT ANTERIOR FASCICULAR BLOCK LEFT VENTRICULAR HYPERTROPHY T ABNORMALITY IN HIGH LATERAL LEADS ABNORMAL ECG RI6.02 No previous ECG available for comparison
[2020-04-02] MEDS: AZTREONAM 2 GM in IV NORMAL SALINE 100ML 100 ML IV SCH ×2 (10:50→20:20)
--- NOTE | 2020-04-02 10:58 | RAD ---
Right lower extremity venous doppler ultrasound History: Right lower extremity pain and swelling Comparison: None Findings: Multiple grayscale, color, and duplex spectral analysis sonographic images were acquired of the right lower extremity veins to evaluate for the presence of DVT. There is normal phasicity. Normal compression, color-flow, and augmentation is demonstrated from the right common femoral to the popliteal veins. There is normal color flow of the proximal greater saphenous and profunda femoris veins. There is normal color flow of segments of the calf veins. There is edema of the soft tissues. Impression: 1. There is no evidence of deep venous thrombosis from the right common femoral to the popliteal veins. Electronically signed by: Bala Solorio MD (04/02/2020 10:55 AM) [id number]
--- NOTE | 2020-04-02 11:01 | RAD ---
Right lower extremity arterial ultrasound History:Weak pulses Findings: Multiple grayscale, color, and duplex spectral analysis sonographic images were acquired of the right lower extremity arteries. There are diffuse abnormal monophasic waveforms throughout the right lower extremity arteries. There is also diffuse plaque throughout the right artery arteries. No vessel occlusion is demonstrated. Velocities in cm/sec: Common femoral artery 179 Profunda femoris artery 134 Proximal SFA 193 Mid SFA 228 Distal SFA 256 Popliteal artery 122 Posterior tibial artery 68 proximally and 68 distally Peroneal artery 61 Anterior tibial artery 84 Dorsalis pedis artery 63 Impression: 1. No vessel occlusion is demonstrated. There is diffuse plaque of the right lower extremity arteries. There are also abnormal monophasic waveforms, degree of inflow disease not excluded. Electronically signed by: Bala Solorio MD (04/02/2020 10:58 AM) [id number]
[2020-04-02] MEDS ORDERED: LIDO:MAALOX 1:1 20 ML SINGLE DOSE. PO ONE (11:30)
[2020-04-02] MEDS ORDERED: HYDROmorphone PF 1 MG/ML DISP.SYRIN IM ONE (12:15)
[2020-04-02] MEDS ORDERED: HYDROmorphone PF 1 MG/ML DISP.SYRIN IV PRN (13:15)
[2020-04-02] MEDS ORDERED: VANCOMYCIN 1 GM in IV NORMAL SALINE 250ML 250 ML IV SCH (13:15)
[2020-04-02 14:30] VITALS: BP 125/73
--- NOTE | 2020-04-02 14:34 | HP ---
ADMIT DATE: 04/02/2020 ATTENDING PHYSICIAN: Dr. Morris. CHIEF COMPLAINT: Epigastric pain and leg swelling. HISTORY OF PRESENT ILLNESS: The patient is a 75-year-old female admitted through the ED with a 1-day history of swelling and erythema in both lower extremities, more prominent on the right. She also has a medication related epigastric pain. Cardiac workup showed no evidence of coronary ischemia. She was given a GI cocktail and Dilaudid with some relief. She has significant cellulitis. She had been on Cipro and doxycycline due to drug allergies. It has not gotten any better; therefore, she will be admitted for inpatient care, intravenous antibiotics and treatment of her symptoms. PAST MEDICAL HISTORY: Significant for the peripheral vascular disease due to significant COPD and smoking history in the past. She has oxygen dependent COPD, on 2 liters nasal cannula. She also had a recent diagnosis of melanoma involving the toes of the right foot. She has had subsequent resection of the 4 little toes preserving the right great toe. She has also had adjuvant chemotherapy through her oncologist at [facility]. She also has peripheral vascular disease and chronic cellulitis due to poor blood circulation. PAST SURGICAL HISTORY: Includes surgical resection, right hip repair and again amputation of the 4 toes of the right foot. ALLERGIES: SHE HAS MULTIPLE ALLERGIES INCLUDING AMOXICILLIN, ASPIRIN, CEPHALEXIN, AUGMENTIN, ERYTHROMYCIN, LATEX, SHELLFISH, AND TRAZODONE. CURRENT MEDICINES: Reviewed. She was taking Tylenol, Symbicort, hydrochlorothiazide, metformin, Crestor, tiotropium and Zyrtec. She lives alone. She recently moved here from [place]. SOCIAL HISTORY: She was a smoker up until several years ago. She denies any significant alcohol use. REVIEW OF SYSTEMS: Unremarkable for any COVID exposure, fevers or chills. Her main concern was her epigastric pain, which is quite uncomfortable. FAMILY HISTORY: Father of alcoholism at age 62. Mom of heart disease at age 85. The rest of the detailed review of systems asked, the patient determined to be negative. PHYSICAL EXAMINATION: GENERAL: When I saw her, this is a pleasant, alert female. INITIAL VITAL SIGNS: Showed a blood pressure 121/60, pulse is 101 and regular, temperature 98.5 degrees Fahrenheit, room air saturations 98% on 3 liters of nasal cannula. HEENT: Head is without trauma. Pupils are reactive. Sclerae nonicteric. Oropharynx remains clear. NECK: Supple, no bruits identified. LUNGS: Otherwise clear. CARDIOVASCULAR: Showed regular heart tones. No gallops. Peripheral pulses are palpable and full. ABDOMEN: Soft, obese, protuberant. No organomegaly. Bowel sounds were hypoactive. EXTREMITIES: Showed no cyanosis or edema. NEUROLOGIC FINDINGS: Focally intact. SKIN: I examined her skin, there is redness and erythema extending up to her thigh. In the right leg, there is a ____ more pronounced erythema involving the left ankle. The skin is indurated, reddened. There are some excoriations. No obvious drainage. It is red and angry and appears warm. There is also surgical absence of the second, third, fourth and fifth toes of the right foot. LABORATORY STUDIES: She had a chest x-ray, which was unremarkable. Minimal atelectasis is noted. She had Doppler studies, which were nondiagnostic. PERTINENT LABORATORY STUDIES: Her hemoglobin was 9.3 g/dL. Her white count was within range. Electrolytes, BUN and creatinine were all within normal range. ASSESSMENT: 1. A 75-year-old female with cellulitis of both lower extremities, worse so on the right side, refractory to outpatient care. 2. Peripheral vascular disease. 3. Symptomatic epigastric pain related to oral antibiotics. 4. Chronic obstructive pulmonary disease, oxygen dependent. 5. History of melanoma with previous resection and treatment ongoing through [facility], she is in remission. 6. Anemia of chronic disease. PLAN: 1. Admit to the inpatient unit. 2. Intravenous vancomycin has been started. 3. Continue some home meds. 4. P.r.n. pain relief. MAGDA MORRIS MD DR: TAMAR/norma JOB#: [id number] / [id number] SEAN Carreon MD
[2020-04-02] MEDS ORDERED: FURO40TA4 PO (14:36)
[2020-04-02] MEDS ORDERED: PRED5TAB PO (14:36)
[2020-04-02] MEDS ORDERED: HYDR-2759 PO (14:36)
[2020-04-02] MEDS ORDERED: POTA20TA4 PO (14:36)
[2020-04-02] MEDS ORDERED: RIVA20TA2 PO (14:36)
[2020-04-02] MEDS ORDERED: IOHEXOL 350 MG/ML 100 ML VIAL. IV ONE (14:45)
--- NOTE | 2020-04-02 15:10 | NUR ---
NSG NOTE; ADMISSION ADMIT TO ROOM 117 AT 1345 FROM ED VIA CART ACCOMP BY EMS PERSONNEL PT C/O UPPER CHEST PAIN WORSENING WITH DEEP RESP. ON O2 3L AT HOME ALSO; DR MORRIS NOTIFIED. NEW ORDERS RECEIVED. PT ACTUALLY ADMITTED FOR RLE CELLULITIS. PT HAD VEIN SURGERY ON THAT LEG 5 WEEKS AGO
--- NOTE | 2020-04-02 15:16 | NUR ---
NSG NOTE; CHEST PAIN WORSE WITH DEEP RESP. PT SOA. O2 SAT UPPER 90s ON O2 3L ON AT HOME DR MORRIS CALLED. NEW ORDER FOR STAT CTA OBTAINED. AWAITING RESULTS AT THIS TIME
[2020-04-02 15:36] VITALS: BP 125/73
--- NOTE | 2020-04-02 16:00 | RAD ---
Exam: CT of chest with contrast INDICATION: Shortness of breath TECHNIQUE: Sequential axial images through the chest obtained following the administration of 100 mL of Omni 350 IV contrast. Sagittal and coronal reformatted images were reconstructed from the axial data and reviewed. 3-D reformatted images were reconstructed from the axial data and reviewed. Comparisons: 04/02/2020 FINDINGS: Visualized portions of the thyroid are unremarkable. No enlarged mediastinal lymph nodes are identified. Heart is mildly enlarged. Trace pericardial fluid. Thoracic aorta has a normal course and caliber. Pulmonary artery is not enlarged. No pulmonary embolus identified within the main, lobar or segmental pulmonary arteries. Airways are patent. Moderate centrilobular emphysematous change noted predominantly at the upper lungs. No consolidation. No suspicious lung nodules are identified. There is mild wall thickening of the distal esophagus. There is lucency surrounding the right lateral portion of the mid esophagus which is favored represent emphysematous bulla seen on prior chest CT from 2018 in the same region. Visualized upper abdomen is unremarkable. No suspicious osseous lesions or acute fractures. IMPRESSION: 1. No pulmonary embolus identified within the main, lobar or segmental pulmonary arteries. 2. Lucency noted along the right lateral margin of the mid esophagus. It is uncertain whether this relates to a trace pneumothorax or whether this represents the emphysematous bulla seen on the prior CT in 2018 in expiratory phase. There is mild thickening of the esophagus in this region which could relate to esophagitis. Correlate with symptomatology and in the absence of intervention short-term follow-up imaging(CT chest with patient instructed to take full inspiration) is recommended to reassess. Exposure: One or more of the following in the visualized dose reduction techniques were utilized for this examination: 1. Automated exposure control 2. Adjustment of the MA and/or KV according to patient size 3. Use of iterative of reconstructive technique FOR INTERNAL CODING PURPOSES Critical result: Findings discussed with Sol Minor RN at 04/02/2020 3:56 PM. RESULT CODE: (C) Electronically signed by: Dominic Particio MD (04/02/2020 3:58 PM) [id number]
--- NOTE | 2020-04-02 16:50 | NUR ---
Pharmacy Vancomycin Dosing Note S:Consulted to monitor and dose vancomycin started 04/02/20. O:JUNI ANDUJAR is a 75 year old F with Cellulitis, . Height: 5 feet, 5 inches Weight: 90.5 kg [place] Body Weight: 57.00 Adjusted Body Weight: 70.20 Dosing Weight: Actual Other Antibiotics: AZTREONAM 2GRAM Q6HRS LABS: Last BUN: 19 Last Creatinine: 1 Creatinine Clearance: Last WBC: 10.6 Last Procalcitonin: Tmax (past 24 hours): Microbiology: I/O: Drug Levels: Last level: on at Last dose given 04/02/20 at 1127 Vancomycin Dosing: Loading Dose: 2000 mg x1 Dosing Weight: Actual Target Trough: 10-20 A: Based on: P: 1. Begin Vancomycin 1250 mg IV q24h 2. Follow up Trough level on 04/04/20 at 1100 3. Pharmacy will continue to monitor, follow and adjust therapy as needed. ANASTASIYA QUIROGA [facility], 04/02/20 0125
[2020-04-02 19:40] VITALS: BP 110/52
[2020-04-02] MEDS: ACETAMINOPHEN 325 MG TABLET PO PRN (21:05)
[2020-04-02] MEDS: HYDROmorphone PF 1 MG/ML DISP.SYRIN IV PRN (21:53)
[2020-04-03] MEDS: AZTREONAM 2 GM in IV NORMAL SALINE 100ML 100 ML IV SCH ×4 (01:00→17:14)
[2020-04-03 06:00] VITALS: BP 134/58
[2020-04-03] MEDS: HYDROmorphone PF 1 MG/ML DISP.SYRIN IV PRN ×4 (06:16→17:58)
--- NOTE | 2020-04-03 09:11 | PN ---
DATE: 04/03/2020 ATTENDING PHYSICIAN: Dr. Morris. SUBJECTIVE: Epigastric pain has subsided and is manageable. She is taking intermittent doses of pain meds, swelling in the leg has also improved. No new discomfort. OBJECTIVE FINDINGS: VITAL SIGNS: Her blood pressure today is 134/58 mmHg, pulse is 100 and regular, temperature 98.8 degrees Fahrenheit, oxygen saturation 94% on 3 liters nasal cannula, which is her regular maintenance dosage. HEENT: Head is without trauma. Pupils are reactive. Sclerae nonicteric. Oropharynx is clear. NECK: Supple, no bruits identified. LUNGS: Otherwise clear. CARDIOVASCULAR: Showed regular heart tones. No gallops, no murmurs. Peripheral pulses are palpable and full. ABDOMEN: Soft, nontender, no organomegaly. Bowel sounds were normoactive. EXTREMITIES: Showed decreased swelling of the right leg. The erythema is improved and dissipating. There is a line of demarcation and is actually resolving. There are some open sores distally that is slowly healing. She has known peripheral artery disease. SKIN: Warm and dry. NEUROLOGIC: Focally intact. Speech is fluent. LABORATORY DATA: The CT of the chest done yesterday ruled out no evidence of pulmonary embolus. There is a lucency along the right lateral margin of the mid esophagus. It may represent emphysematous bulla seen on prior CT scan 2 years ago. She does have some esophagitis in this region, which correlates with her pain. ASSESSMENT: 1. A 75-year-old female with cellulitis of both legs, most likely MRSA species. She has responded well to vancomycin. 2. Esophagitis causing epigastric pain, improving. 3. History of melanoma with previous resection of four toes of the right foot. 4. Chronic obstructive pulmonary disease, oxygen dependent. 5. Peripheral artery disease. 6. Type 2 diabetes mellitus. PLAN: 1. Continue antibiotics as prescribed. 2. P.r.n. pain meds. 3. Diet as tolerated. 4. P.r.n. pain relief. 5. Discharge planning will include oral antibiotics that has good MRSA coverage. MAGDA MORRIS MD DR: TAMAR/norma JOB#: [id number] / [id number]
[2020-04-03] MEDS: LACTOBACILLUS RHAMNOSUS GG 1 CAPSULE. PO SCH ×2 (09:33→20:25)
[2020-04-03] MEDS: POTASSIUM CHLORIDE 20 MEQ TABLET.ER. PO SCH (09:33)
[2020-04-03] MEDS: FUROSEMIDE 40 MG TABLET PO SCH (09:33)
[2020-04-03] MEDS: VANCOMYCIN 1.25 GM in IV NORMAL SALINE 250ML 250 ML IV SCH (11:49)
[2020-04-03 12:00] VITALS: BP 98/83
[2020-04-03 15:00] VITALS: BP 118/56
[2020-04-03] MEDS ORDERED: MAGNESIUM CITRATE 296 ML SOLUTION. PO PRN (17:00)
[2020-04-03] MEDS: ACETAMINOPHEN 325 MG TABLET PO PRN (17:13)
[2020-04-03 20:01] VITALS: BP 112/69
[2020-04-03] MEDS: BISACODYL TAB 5 MG TABLET.DR. PO SCH (20:25)
[2020-04-03 22:46] VITALS: BP 122/78
[2020-04-04] MEDS: HYDROmorphone PF 1 MG/ML DISP.SYRIN IV PRN ×5 (02:06→19:45)
[2020-04-04] MEDS: ACETAMINOPHEN 325 MG TABLET PO PRN ×3 (04:19→19:44)
[2020-04-04 05:36] VITALS: BP 106/67
[2020-04-04] MEDS: AZTREONAM 2 GM in IV NORMAL SALINE 100ML 100 ML IV SCH ×4 (05:39→18:01)
[2020-04-04] MEDS: POTASSIUM CHLORIDE 20 MEQ TABLET.ER. PO SCH (08:36)
[2020-04-04] MEDS: RIVAROXABAN 10 MG TABLET. PO SCH (08:36)
[2020-04-04] MEDS: BISACODYL TAB 5 MG TABLET.DR. PO SCH ×3 (08:37→21:00)
[2020-04-04] MEDS: LACTOBACILLUS RHAMNOSUS GG 1 CAPSULE. PO SCH ×2 (08:37→19:44)
[2020-04-04] MEDS: FUROSEMIDE 40 MG TABLET PO SCH (08:37)
--- NOTE | 2020-04-04 09:28 | PN ---
DATE: 04/04/2020 ATTENDING PHYSICIAN: Dr. Morris. SUBJECTIVE: Minimal epigastric pain persists, swelling in her legs are down. She has some difficulties with occasional hemorrhoids from hard stools. She has been taking Colace at home. OBJECTIVE FINDINGS: VITAL SIGNS: She is afebrile, blood pressure is 106/67, pulse 90 and regular, oxygen saturation 96% on 3 liters nasal cannula. She has been on supplemental oxygen for the last 7 years. HEENT: Head is without trauma. Pupils are reactive. Sclerae nonicteric. Oropharynx clear. NECK: Supple, no bruits. LUNGS: Clear. CARDIOVASCULAR: Showed regular heart tones. No gallops. ABDOMEN: Obese, protuberant. No organomegaly. Bowel sounds are hypoactive. EXTREMITIES: Showed swelling of the right ankle, which is less pronounced. She has lymphedema in addition. There is surgical absence of the second, third, fourth and fifth toes of the right foot. The cellulitis involving the lower leg has improved. The redness and erythema is less pronounced and the redness is receding. There is a small amount of erythema at the posterior left ankle. This was also receded. LABORATORY DATA: Her hemoglobin on admission was 9.3 grams, white count 10,000. Blood sugar 157 mg/dL. ASSESSMENT: 1. A 75-year-old female with cellulitis of both legs, aggravated by the combination of arterial sclerosis and peripheral vascular disease. The right leg is worsened by the fact she has had lymph node resection following a diagnosis of melanoma, and she has chronic edema. 2. Esophagitis causing spasms, improved. 3. History of melanoma, right leg. 4. Chronic obstructive pulmonary disease, oxygen dependent. 5. Peripheral artery disease. 6. Type 2 diabetes. 7. Constipation and hemorrhoids. PLAN: 1. Continue vancomycin as ordered. It is being managed by [facility]. 2. P.r.n. pain meds which is helping her symptoms. 3. Add MiraLax. 4. Diet as tolerated. 5. Discharge plan with oral antibiotics when inflammation and symptoms improve. MAGDA MORRIS MD DR: TAMAR/norma JOB#: [id number] / [id number]
[2020-04-04] MEDS: POLYETHYLENE GLYCOL 3350 17 GM PACKET. PO SCH (10:00)
[2020-04-04 11:01] VITALS: BP 109/61
[2020-04-04 11:09] LABS: VANC TR 5.7 mcg/mL (10.0-20.0)
[2020-04-04] MEDS: VANCOMYCIN PER PHARMACY MC PRN (11:39)
--- NOTE | 2020-04-04 11:41 | NUR ---
Pharmacy Vancomycin Dosing Note S:Consulted to monitor and dose vancomycin started 04/02/20. O:JUNI ANDUJAR is a 75 year old F with Cellulitis, . Height: 5 feet, 5 inches Weight: 90.2 kg [place] Body Weight: 57.00 Adjusted Body Weight: 70.28 Dosing Weight: Actual Other Antibiotics: AZTREONAM 2GRAM Q6HRS LABS: Last BUN: 19 Last Creatinine: 1 Creatinine Clearance: 53.93 Last WBC: 10.6 Drug Levels: Last Trough level: 5.7 on 04/04/20 at 1100 Last dose given 04/03/20 at 1130 Vancomycin Dosing: Loading Dose: 2000 mg x1 Dosing Weight: Actual Target Trough: 10-20 A: Based on: Trough and renal function P: 1. Begin Vancomycin 1250 mg IV q12h 2. Follow up Trough level on 04/06/20 at 0930 3. Pharmacy will continue to monitor, follow and adjust therapy as needed. NATHANIEL SOLER, 04/04/20 1141
[2020-04-04] MEDS: VANCOMYCIN 1.25 GM in IV NORMAL SALINE 250ML 250 ML IV SCH ×2 (11:53→21:17)
[2020-04-04 15:47] VITALS: BP 139/77
[2020-04-04 20:05] VITALS: BP 138/69
[2020-04-05] MEDS: AZTREONAM 2 GM in IV NORMAL SALINE 100ML 100 ML IV SCH ×5 (00:56→23:37)
[2020-04-05] MEDS: HYDROmorphone PF 1 MG/ML DISP.SYRIN IV PRN ×2 (03:55→22:42)
[2020-04-05 05:31] VITALS: BP 113/67
[2020-04-05] MEDS: FUROSEMIDE 40 MG TABLET PO SCH (07:56)
[2020-04-05] MEDS: LACTOBACILLUS RHAMNOSUS GG 1 CAPSULE. PO SCH ×2 (07:56→20:59)
[2020-04-05] MEDS: metFORMIN 500 MG TABLET PO SCH (07:56)
[2020-04-05] MEDS: BISACODYL TAB 5 MG TABLET.DR. PO SCH ×2 (07:56→21:00)
[2020-04-05] MEDS: RIVAROXABAN 10 MG TABLET. PO SCH (07:56)
[2020-04-05] MEDS: POLYETHYLENE GLYCOL 3350 17 GM PACKET. PO SCH (07:57)
[2020-04-05] MEDS: POTASSIUM CHLORIDE 20 MEQ TABLET.ER. PO SCH (07:57)
[2020-04-05] MEDS: ACETAMINOPHEN 325 MG TABLET PO PRN ×2 (08:02→21:00)
--- NOTE | 2020-04-05 10:53 | PN ---
DATE: 04/05/2020 ATTENDING PHYSICIAN: Dr. Morris. SUBJECTIVE: Epigastric pain is better, but she is complaining of myalgias, mainly in her shoulders and arms. She is able to ambulate to the bathroom without any problem. OBJECTIVE FINDINGS: VITAL SIGNS: Blood pressure today is 113/67, pulse is 101 and regular, temperature 97.7 degrees Fahrenheit, oxygen saturation 97% on 3 liters nasal cannula. HEENT: Head is without trauma. Pupils are reactive. Sclerae nonicteric. Oropharynx clear. NECK: Supple, no bruits. LUNGS: Otherwise clear. CARDIOVASCULAR: Showed regular heart tones. No gallops. Peripheral pulses are palpable and full. ABDOMEN: Soft, obese, protuberant. No organomegaly. Bowel sounds were hypoactive. EXTREMITIES: Showed resolution of her inflammation on the left side. The right leg swelling persists due to chronic lymphedema. The redness and erythema again is dissipating and fading. She still has 2+ edema extending up past her knees. SKIN: Otherwise, warm and dry. There is extremity surgical absence of second, third, fourth and fifth toes of the right foot on 3 separate resections. Blood sugars are adequate. ASSESSMENT: 1. A 75-year-old female with cellulitis of both legs, improving. It is aggravated by the peripheral arterial disease, arterial sclerosis and lymph node resection following a melanoma diagnosis. 2. Esophagitis, causing spasms, improved. 3. History of melanoma, right leg with multiple resections and lymph node dissection. 4. Chronic obstructive pulmonary disease, oxygen-dependent. 5. Peripheral artery disease. 6. Type 2 diabetes. 7. Constipation, hemorrhoids, improved. PLAN: 1. Continue vancomycin 1 more day as ordered. 2. P.r.n. pain meds. 3. MiraLax ordered. 4. Diet as tolerated. 5. Accu-Cheks as ordered. 6. Tentative discharge planning for tomorrow morning. MAGDA MORRIS MD DR: TAMAR/norma JOB#: [id number] / [id number]
[2020-04-05] MEDS: VANCOMYCIN 1.25 GM in IV NORMAL SALINE 250ML 250 ML IV SCH ×2 (11:18→21:25)
[2020-04-05 11:21] VITALS: BP 129/75
--- NOTE | 2020-04-05 13:25 | NUR ---
Pharmacy Vancomycin Dosing Note S:Consulted to monitor and dose vancomycin started 04/02/20. O:JUNI ANDUJAR is a 75 year old F with Cellulitis, . Height: 5 feet, 5 inches Weight: 90.2 kg [place] Body Weight: 57.00 Adjusted Body Weight: 70.28 Dosing Weight: Actual Other Antibiotics: AZTREONAM 2GRAM Q6HRS LABS: Last BUN: 19 Last Creatinine: 1 Creatinine Clearance: 53.93 Last WBC: 10.6 Last Procalcitonin: Tmax (past 24 hours): Microbiology: I/O: Drug Levels: Last Trough level: 5.7 on 04/04/20 at 1100 Last dose given 04/03/20 at 1130 Vancomycin Dosing: Loading Dose: 2000 mg x1 Dosing Weight: Actual Target Trough: 10-20 A: Based on: [] P: 1. [g RX.ACTION] Vancomycin 1250 mg IV q12h 2. Follow up Trough level on 04/06/20 at 0930 3. Pharmacy will continue to monitor, follow and adjust therapy as needed. NATHANIEL SOLER, 04/05/20 [id number]
[2020-04-05 15:30] VITALS: BP 119/62
[2020-04-05] MEDS: predniSONE 10 MG TABLET PO SCH (17:00)
[2020-04-05] MEDS: IPRATRPIUM/ALBUTEROL 0.5/2.5MG 3 ML NEBU. NEB SCH (19:02)
[2020-04-05] MEDS ORDERED: methylPREDNISolone SOD SUCC PF 125 MG/2 ML VIAL. IV ONE (19:15)
[2020-04-05 19:43] VITALS: BP 143/68
[2020-04-05 23:02] VITALS: BP 132/79
[2020-04-06 05:24] VITALS: BP 134/79
[2020-04-06] MEDS: AZTREONAM 2 GM in IV NORMAL SALINE 100ML 100 ML IV SCH ×3 (05:37→17:16)
[2020-04-06] MEDS: IPRATRPIUM/ALBUTEROL 0.5/2.5MG 3 ML NEBU. NEB SCH ×4 (05:39→20:32)
[2020-04-06] MEDS: RIVAROXABAN 10 MG TABLET. PO SCH (09:01)
[2020-04-06] MEDS: LACTOBACILLUS RHAMNOSUS GG 1 CAPSULE. PO SCH ×2 (09:02→21:29)
[2020-04-06] MEDS: FUROSEMIDE 40 MG TABLET PO SCH ×2 (09:02→14:25)
[2020-04-06] MEDS: metFORMIN 500 MG TABLET PO SCH (09:03)
[2020-04-06] MEDS: BISACODYL TAB 5 MG TABLET.DR. PO SCH ×2 (09:03→21:29)
[2020-04-06] MEDS: predniSONE 10 MG TABLET PO SCH (09:04)
[2020-04-06] MEDS: POLYETHYLENE GLYCOL 3350 17 GM PACKET. PO SCH (09:04)
[2020-04-06] MEDS: POTASSIUM CHLORIDE 20 MEQ TABLET.ER. PO SCH (09:04)
--- NOTE | 2020-04-06 10:24 | PN ---
DATE: 04/06/2020 SUBJECTIVE: The patient is breathing better. She had issues with COPD. She responded well to intravenous dose of Solu-Medrol in addition to her low-dose prednisone. Her inflammation in the leg is clearly improved; however, she is still apprehensive of going home. She is still dyspneic and still unable to ambulate without any dyspnea. OBJECTIVE FINDINGS: VITAL SIGNS: Temperature today is 97.7 degrees Fahrenheit, pulse is 103 and regular, blood pressure 134/79 mmHg, oxygen saturation 96% on 3 liters of nasal cannula continuous. HEENT: Head is without trauma. Pupils are reactive. Sclerae nonicteric. Oropharynx clear. NECK: Supple, no bruits. LUNGS: Otherwise clear with good breath sounds. She has very minimal wheezing in the upper airways. CARDIOVASCULAR: Showed regular heart tones. No gallops. ABDOMEN: Soft, no guarding, no rebound tenderness. EXTREMITIES: Showed swelling improved in the right leg. The erythema in the left ankle is completely resolved. She still has 2+ pitting edema, which is chronic from lymphedema. The redness has dissipated and there is residual erythema left, which may be chronic. NEUROLOGIC: Focally intact. EXTREMITIES: She has surgical absence of the right second, third, fourth and fifth toes. The wound site is clean. LABORATORY STUDIES: Blood sugar is 250 due to the dose of steroids. See glucocorticoid effects of corticosteroids. ASSESSMENT: 1. A 75-year-old female with cellulitis of both legs improving, is most likely a Staphylococcus infection, aggravated by a melanoma of the right leg and previous lymph node resection as well as associated peripheral artery disease. 2. Esophagitis causing spasms, improved. 3. Chronic obstructive pulmonary disease, oxygen dependent. 4. History of melanoma with multiple resections and lymph node resection. 5. Peripheral artery disease. 6. Type 2 diabetes with an exacerbation due to glucocorticoid use. 7. Constipation and hemorrhoids, resolved. PLAN: 1. Continue vancomycin 1 more day. 2. P.r.n. pain meds. 3. Diet as tolerated. 4. Accu-Cheks and monitor blood sugars. I will hold off giving insulin as I believe this is isolated due to the high dose of steroids she got yesterday. 5. Discharge planning per Dr. Black tomorrow. She knows Dr. Black from previous admission 6 months ago. MAGDA MORRIS MD DR: TAMAR/norma JOB#: [id number] / [id number]
[2020-04-06 11:10] VITALS: BP 139/79
[2020-04-06] MEDS: VANCOMYCIN 1.25 GM in IV NORMAL SALINE 250ML 250 ML IV SCH ×3 (11:37→23:50)
[2020-04-06 12:24] LABS: VANC TR 13.4 mcg/mL (10.0-20.0)
[2020-04-06] MEDS: VANCOMYCIN PER PHARMACY MC PRN (13:15)
--- NOTE | 2020-04-06 13:18 | NUR ---
Pharmacy Vancomycin Dosing Note S:Consulted to monitor and dose vancomycin started 04/02/20. O:JUNI ANDUJAR is a 75 year old F with Cellulitis. Height: 5 feet, 5 inches Weight: 90.2 kg [place] Body Weight: 57.00 Adjusted Body Weight: 70.28 Dosing Weight: Actual Other Antibiotics: AZTREONAM 2GRAM Q6HRS LABS: Last BUN: 19 Last Creatinine: 1 Creatinine Clearance: 53.93 Last WBC: 10.6 Drug Levels: Last Trough level: 13.1 on 04/06/20 at 0930 Last dose given 04/05/20 at 2125 Vancomycin Dosing: Loading Dose: 2000 mg x1 Dosing Weight: Actual Target Trough: 10-20 A: Based on: patient's trough is in goal range. Will recheck trough tomorrow to ensure patient is not accumulating excess drug. P: 1. Continue Vancomycin 1250 mg IV q12h 2. Follow up Trough level on 04/07/20 at 0930 3. Pharmacy will continue to monitor, follow and adjust therapy as needed. TONY GRIDER, 04/06/20 [id number]
--- NOTE | 2020-04-06 14:11 | NUR ---
Called regarding change in patient condition re: increased SOB, swelling, erythema in Left leg increasing, and sustained HR of 130 most of the AM. See orders. PT Lasix was input as daily on med rec when pt reporting taking BID. He wants to give her 80 IV lasix today, then resume BID order per home meds. Also put on Beta donita for HR control BID. Asked if ok to perform labs considering pt has not had labs in 4 days to see if WBC count improving or worsening. He was agreeable to this request CBC and CMP. Juana VILLALBA
[2020-04-06] MEDS ORDERED: FUROSEMIDE 40 MG/4 ML VIAL IVP ONE (14:25)
[2020-04-06 16:08] VITALS: BP 117/58
[2020-04-06 16:51] LABS: BASO # 0.1 x10^3/uL (0.0-0.2); BASO % 1 % (0-3); EOS % 0 % (0-3); HEMATOCRIT 26.2 % (36.0-47.0); HEMOGLOBIN 8.3 g/dL (12.0-15.5); LYMPH # 0.5 x10^3/uL (1.0-4.8); LYMPH % 7 % (24-48); MEAN CORPUSCULAR HEMOGLOBIN 27 pg (25-35); MEAN CORPUSCULAR HGB CONC 32 g/dL (31-37); MEAN CORPUSCULAR VOLUME 84 fL (79-100); MONO # 0.3 x10^3/uL (0.0-1.1); MONO % 4 % (0-9); NEUT # 7.4 x10^3uL (1.8-7.7); NEUT % 89 % (31-73); PLATELET COUNT 695 x10^3/uL (140-400); RED BLOOD COUNT 3.12 x10^6/uL (3.50-5.40); RED CELL DISTRIBUTION WIDTH 18.7 % (11.5-14.5); WHITE BLOOD COUNT 8.3 x10^3/uL (4.0-11.0)
[2020-04-06 17:03] LABS: ALBUMIN/GLOBULIN RATIO 0.4 (1.0-1.7); CALCIUM 8.6 mg/dL (8.5-10.1); GFR 54.1; POTASSIUM 3.8 mmol/L (3.5-5.1); TOTAL BILIRUBIN 0.2 mg/dL (0.2-1.0); TOTAL PROTEIN 6.5 g/dL (6.4-8.2)
[2020-04-06] MEDS: ATENOLOL 25 MG TABLET PO SCH ×2 (17:19→21:30)
[2020-04-06 18:57] VITALS: BP 123/66
[2020-04-06] MEDS: ACETAMINOPHEN 325 MG TABLET PO PRN (21:29)
--- NOTE | 2020-04-06 23:44 | NUR ---
Upon assessment, Port-a-cath dressing loose and biopatch displaced. Dressing replaced using sterile technique. Port flushes easily, but unable to obtain blood return. Dr. Chaidez notified and new order for Cathflo obtained. Pt declines peripheral access being obtained, reports "I'm a very hard stick and the last one blew." Vanco unable to be infused in the meantime.
[2020-04-07] MEDS ORDERED: ALTEPLASE 2 MG VIAL INT CAT ONE
--- NOTE | 2020-04-07 00:08 | NUR ---
Prior to cathflo admin, pt now with immediate return of blood flow from port. Cathflo non-administered and vanco now infusing. Pharmacy informed of late admin and will adjust future dose timing.
[2020-04-07] MEDS: HYDROmorphone PF 1 MG/ML DISP.SYRIN IV PRN (00:14)
[2020-04-07] MEDS: AZTREONAM 2 GM in IV NORMAL SALINE 100ML 100 ML IV SCH ×3 (01:09→11:39)
[2020-04-07 01:20] VITALS: BP 129/66
[2020-04-07] MEDS: IPRATRPIUM/ALBUTEROL 0.5/2.5MG 3 ML NEBU. NEB SCH ×3 (05:16→16:00)
[2020-04-07 05:32] VITALS: BP 106/57
[2020-04-07] MEDS: predniSONE 10 MG TABLET PO SCH (08:16)
[2020-04-07] MEDS: LACTOBACILLUS RHAMNOSUS GG 1 CAPSULE. PO SCH (08:16)
[2020-04-07] MEDS: metFORMIN 500 MG TABLET PO SCH (08:16)
[2020-04-07] MEDS: ATENOLOL 25 MG TABLET PO SCH (08:17)
[2020-04-07] MEDS: FUROSEMIDE 40 MG TABLET PO SCH ×2 (08:17→13:40)
[2020-04-07] MEDS: POLYETHYLENE GLYCOL 3350 17 GM PACKET. PO SCH (08:17)
--- NOTE | 2020-04-07 08:17 | RAD ---
EXAM: PORTABLE CHEST 1V INDICATION: Reason: continued SOA / Spl. Instructions: / History: . TECHNIQUE: Single view COMPARISON: 04/02/2020 chest x-ray FINDINGS: Stable left subclavian approach central venous catheter with the tip near the cavoatrial junction Mild cardiac enlargement Great vessels again show aortic calcification and tortuosity. No hilar or mediastinal mass is apparent Lungs show worsening basilar atelectasis, more conspicuous in the medial left lung base and with slightly lower lung volumes. There is increasing density at the right greater than left lung base suggesting developing bilateral pleural effusions. No pneumothorax. There are no significant osseous abnormalities. IMPRESSION: Worsening bibasilar atelectasis with findings suggesting developing bilateral pleural effusions Electronically signed by: Shereen Zacarias MD (04/07/2020 8:14 AM) [id number]
[2020-04-07] MEDS: POTASSIUM CHLORIDE 20 MEQ TABLET.ER. PO SCH (08:18)
[2020-04-07] MEDS: RIVAROXABAN 10 MG TABLET. PO SCH (08:18)
[2020-04-07] MEDS: BISACODYL TAB 5 MG TABLET.DR. PO SCH (08:19)
[2020-04-07 10:46] VITALS: BP 127/66
[2020-04-07] MEDS: VANCOMYCIN 1.25 GM in IV NORMAL SALINE 250ML 250 ML IV SCH (11:39)
[2020-04-07 14:12] VITALS: BP 106/62
[2020-04-07] MEDS ORDERED: FLUT1BLS3 IH (17:25)
[2020-04-07] MEDS ORDERED: LINE600T12 PO (17:25)
[2020-04-07 18:12] LABS: FECAL OB PT NEGATIVE (NEG)
[2020-04-07] MEDS ORDERED: HEPARIN PF 500 UNIT/5 ML DISP.SYRIN. IVP ONE (18:15)
--- NOTE | 2020-04-07 18:41 | NUR ---
PATIENT IS DISCHARGED TO HOME WITH HOME HEALTH SERVICES. DISCHARGED INSTRUCTIONS AND PRESCRIBED MEDICATIONS DISCUSSED WITH THE PT, PT VERBALIZED UNDERSTANDING. PATIENT LEFT ROOM 117 VIA W/C ACCOMPANIED BY STAFF MEMBER. PATIENT WAS TAKEN HOME BY FAMILY MEMBER VIA PERSONAL VEHICLE.
--- NOTE | 2020-04-07 18:51 | DS ---
DATE OF DISCHARGE: HOSPITAL COURSE: The patient is a 75-year-old female patient, who was admitted on 04/02/2020 with right lower extremity cellulitis. She was treated with vancomycin and aztreonam as she has had huge list of allergies, particularly to PENICILLIN, CEPHALEXIN, ERYTHROMYCIN. She was also extensively investigated. She has had bilateral Doppler ultrasound and bilateral arterial ultrasound and CT angio of the chest. She has no evidence of any DVT. No arterial blockage and no pulmonary emboli and as she remained hemodynamically stable, afebrile, the erythema of the particular right lower extremity is fading, a decision was made to discharge her home to continue with oral Zyvox. PHYSICAL EXAMINATION: GENERAL: When I examined her this afternoon, she looked somewhat pale, but no jaundice, cyanosis or thyromegaly. No jugular venous distention. No limb edema. VITAL SIGNS: Her heart rate was 79, blood pressure was 106/62, temperature was 97.7, respiratory rate was 22 and oxygen saturation was 96% on 3 liters of oxygen. HEAD, EYES, EARS, NOSE AND THROAT: Showed normocephalic, atraumatic. NECK: Supple. HEART: Showed normal first and second heart sounds. No gallop, rub or murmur. CHEST: Clear to auscultation. No crepitation or rhonchi. ABDOMEN: Distended, soft, nontender. No guarding or rigidity. No organomegaly. All hernial orifice intact. Bowel sounds normal. NEUROLOGIC: She was awake, alert, responding appropriately. All cranial nerves are intact. She moves extremities without difficulty. She apparently ambulates with a walker. LABORATORY DATA: Her lab work this morning showed a white cell count of 8300, hemoglobin 8.3, hematocrit 26.2, MCV 84 and platelet count of 695,000. Her serum sodium was 138, potassium 3.8, chloride 101, bicarbonate 26, anion gap of 11, BUN 16, creatinine 1, estimated GFR was 54 mL per minute. Her glucose was 364, calcium was 8.6. Total bilirubin, AST, ALT, alkaline phosphatase were normal. Total protein 6.5, albumin 2. Her prothrombin time was 11.1, INR 1.1, aPTT was 26 and toxic screen showed vancomycin trough levels within normal range. DISCHARGE MEDICATIONS: She was discharged home to continue on Trelegy Ellipta 1 inhalation once a day, linezolid for Zyvox 600 mg twice a day, Tylenol 650 mg every 6 hours, furosemide 40 mg twice a day, hydrocodone/APAP 5/325 half a tablet every 6 hours, metformin 1000 mg daily, potassium chloride 20 mEq daily, prednisone 5 mg twice a day, rivaroxaban for Xarelto 20 mg once a day. Tiotropium bromide Spiriva HandiHaler 1 inhalation once a day. FINAL DISCHARGE DIAGNOSES: 1. Bilateral lower extremity cellulitis, more so on the right, improving. 2. Esophagitis causing spasm, improved. 3. Chronic obstructive pulmonary disease, oxygen dependent. 4. History of melanoma with multiple resections and lymph node resection. 5. Peripheral artery disease. 6. Type 2 diabetes mellitus with exacerbation due to glucocorticoid use. 7. Constipation, hemorrhoids, resolved. The patient will be discharged home with home health to continue on oral Zyvox 600 mg twice a day. She also requested a prescription for Trelegy Ellipta 1 inhalation once a day, it was given to her by Dr. Jaquez. ALVERTO MAHAJAN MD DR: CESIA/norma JOB#: [id number] / [id number]
== END 2020-04-07 18:35 | disposition home health service (06) | DRG 871 ==
LOC: ER 09:10 → 1 SOUTH 11:20
PROVIDERS: ADMIT Hospitalist; ATTEND Internal Medicine
PROC: 02HV33Z Insertion of Infusion Device into Superior Vena Cava, Percutaneous Approach (ICD-10-PCS; principal; 2020-04-02)
DX: A41.9 Sepsis, unspecified organism (principal); E43 Unspecified severe protein-calorie malnutrition; L03.115 Cellulitis of right lower limb; L03.116 Cellulitis of left lower limb; K20.9 Esophagitis, unspecified; B95.8 Unspecified staphylococcus as the cause of diseases classified elsewhere; C43.71 Malignant melanoma of right lower limb, including hip; D63.8 Anemia in other chronic diseases classified elsewhere; Z68.33 Body mass index [BMI] 33.0-33.9, adult; Z87.891 Personal history of nicotine dependence; E11.51 Type 2 diabetes mellitus with diabetic peripheral angiopathy without gangrene; E78.5 Hyperlipidemia, unspecified; I10 Essential (primary) hypertension; I25.10 Atherosclerotic heart disease of native coronary artery without angina pectoris; J44.9 Chronic obstructive pulmonary disease, unspecified; K59.00 Constipation, unspecified; K64.9 Unspecified hemorrhoids; Z79.01 Long term (current) use of anticoagulants; Z82.49 Family history of ischemic heart disease and other diseases of the circulatory system; Z99.81 Dependence on supplemental oxygen; Z88.8 Allergy status to other drugs, medicaments and biological substances; T38.0X5A Adverse effect of glucocorticoids and synthetic analogues, initial encounter
CPT/HCPCS: 36415; 71045; 71275; 80053; 80202; 82274; 82947; 83605; 83880; 84484; 85025; 85610; 85730; 87040; 93005; 93923; 93971; 94640; 96365; 96366; 96368; 96372; J1170; J1940; J2930; J3370; J3490; J7040; J7050; J7512; Q9967; 99285-25; J7030

== ENCOUNTER → 2021-09-20 | Outpatient (CLI) | payer MEDICARE ==
[~2021-09-20] MED LIST changes: +FLUT1BLS3 IH; +FURO40TA4 PO; +HYDR-2759 PO; +LINE600T12 PO; +POTA-121 PO; +PRED5TAB PO; +RIVA20TA2 PO
--- NOTE | 2021-09-20 12:45 | RAD ---
INDICATION: Screening for osteopenia/osteoporosis. Postmenopausal follow-up COMPARISON: 07/15/2019 TECHNIQUE: Bone densitometry was performed through the lumbar spine and proximal femur. IMPRESSION: Lumbar Spine: BMD: 1.2 T-Score: 0.2 Range: Normal. Decreased by 8 percent from prior Proximal Femur: BMD: 0.87 T-Score: -0.7 Range: Lower limits of normal. Decreased by 14 percent from prior World Health Organization Criteria for Bone Density: T-Score: > -1.0: Normal Range < -1.0 to -2.5: Osteopenic Range < -2.5: Osteoporotic Range Electronically signed by: Willy Jerome MD (09/20/2021 12:43 PM) [id number]
--- NOTE | 2021-09-20 13:54 | RAD ---
EXAMINATION: MG 2D BILAT SCREENING CLINICAL HISTORY: Screening mammogram TECHNIQUE: Digital craniocaudal and mediolateral oblique views of the bilateral breasts. COMPARISON: 07/15/2019, 06/26/2018, 03/06/2017, 02/01/2016 BREAST COMPOSITION: There are scattered areas of fibroglandular density. FINDINGS: 4 mm developing asymmetry left lateral breast middle to posterior third at approximately 6.3 cm from the nipple, however, it is of note that the nipple is not in profile. This is only visualized on the CC view. No evidence of suspicious mass in the right breast. No evidence of suspicious calcifications or areas of architectural distortion bilaterally. IMPRESSION: 4 mm developing asymmetry left lateral breast on cc view only, recommend spot compression and true la teral views for further evaluation as well as possible targeted left breast ultrasound if indicated. BI-RADS ASSESSMENT: Category 0: Incomplete - Need Additional Imaging Evaluation and/or Prior Mammograms for Comparison RECOMMENDATION: Follow up left breast diagnostic mammogram and possible targeted left breast ultrasound if indicated. PQRS compliance statement - Patient information was entered into a reminder system with a target due date for the next mammogram. "Our facility is accredited by the [employer] Mammography Program." Electronically signed by: Anson Rizo DO (09/20/2021 1:52 PM) [id number]
== END ==
LOC: MAMMO 10:46
PROVIDERS: ATTEND Specialist
DX: Z12.31 Encounter for screening mammogram for malignant neoplasm of breast (principal); Z13.820 Encounter for screening for osteoporosis; Z78.0 Asymptomatic menopausal state
CPT/HCPCS: 77067; 77080

== ENCOUNTER → 2021-10-05 | Outpatient (CLI) | payer MEDICARE ==
--- NOTE | 2021-10-05 13:57 | RAD ---
LEFT DIAGNOSTIC MAMMOGRAPHY History: Abnormal screening mammogram. Comparison: Bilateral mammogram 09/20/2021 and prior years. Technique: Left true lateral and spot compression CC digital mammogram views were obtained. Findings: Breast Tissue Density B : There are scattered areas of fibroglandular density. With the nipple in profile and with spot compression the tiny asymmetry of the lateral left breast is no longer identified. There is no correlate on the true lateral view. There is a coarse benign calci fication. There are faint arterial calcifications. IMPRESSION: The tiny asymmetry of the lateral left breast resolves with additional mammogram views. Recommend ret urn to routine mammogram screening. BI-RADS category 2: Benign findings. The images were reviewed with computer-aided detection. Patient information is entered into the reminder system with a target due date for the next screening mammogram. Mammography is the most sensitive method for finding small breast cancers, but it does not detect the m all and is not a substitute for careful clinical examination. A negative mammogram does not negate a clinically suspicious finding and should not result in delay in biopsying a clinically suspicious a bnormality. "Our facility is accredited by the [employer] Mammography Program." Electronically signed by: Venkata Muniz MD (10/05/2021 1:54 PM) [id number]
== END ==
LOC: MAMMO 13:20
PROVIDERS: ATTEND Specialist
DX: R92.1 Mammographic calcification found on diagnostic imaging of breast (principal); R92.2 Inconclusive mammogram
CPT/HCPCS: 77065

== ENCOUNTER → 2021-10-26 | Outpatient (CLI) | payer MEDICARE ==
--- NOTE | 2021-10-27 17:35 | RAD ---
Bilateral lower extremity arterial duplex study 10/26/2021 CLINICAL HISTORY: Peripheral vascular disease. Right leg cellulitis. Cyanotic right toe. Diabetes. TECHNIQUE: Using a combination of real-time ultrasound imaging and color-flow and pulse Doppler imagi ng techniques, duplex evaluation of major arterial structures of both arteries was performed. Multipl e images were obtained. FINDINGS: Moderate atheromatous/atherosclerotic plaque formation is seen scattered throughout the nicci or arterial structures of both lower extremities. The arterial waveforms throughout both lower extrem ities are predominantly monophasic/biphasic with the exception of the right posterior tibial artery w hich is monophasic. The peak systolic velocities taper normally. No hemodynamically significant steno sis or area of occlusion is seen. IMPRESSION: Moderate atheromatous/atherosclerotic plaque formation is seen scattered throughout the m ajor arterial structures of both lower extremities. No hemodynamically significant stenosis or area o f occlusion is seen. Electronically signed by: Lewis Kwan MD (10/27/2021 5:32 PM) [id number]
== END ==
LOC: US 14:33
PROVIDERS: ATTEND Specialist
DX: L03.115 Cellulitis of right lower limb (principal); I73.9 Peripheral vascular disease, unspecified
CPT/HCPCS: 93925

== ENCOUNTER → 2021-12-08 | Outpatient (CLI) | payer MEDICARE ==
--- NOTE | 2021-12-08 15:55 | RAD ---
EXAM: Right thigh sonogram. HISTORY: Right thigh mass resection. TECHNIQUE: Sonographic imaging of the right thigh at the site of reported concern was performed. COMPARISON: None. FINDINGS: There is a 2.7 x 2.4 x 1.6 cm region of decreased echogenicity with irregular indistinct ma rgins within the superior medial right thigh underlying cutaneous scarring related to prior reported mass resection. This region demonstrates no abnormal blood flow. This favors postoperative scarring r ather than a residual recurrent lesion. IMPRESSION: 2.7 cm region of irregular hypoechoic echogenicity within the superior medial right thigh at the site of prior surgery, possibly due to scar/granulation tissue given the absence of internal blood flow to suggest a residual or recurrent mass. There is no prior study for comparison. Correlate with surgical history and prior pathology findings. Cross-sectional imaging can be performed if ther e is concern for a suspicious mass in this location. Electronically signed by: Enedina Nash MD (12/08/2021 3:52 PM) [id number]
== END ==
LOC: US 14:28
PROVIDERS: ATTEND Plastic Surgery
DX: D21.21 Benign neoplasm of connective and other soft tissue of right lower limb, including hip (principal)
CPT/HCPCS: 76882